=== PATIENT | female | born 1990 | race Caucasian/White ===

== ENCOUNTER 2025-06-15 10:22 | Emergency (ER) | payer OTHER, SELFPAY ==
[2025-06-15 10:41] VITALS: BP 151/75; PULSE 87; RESP 18; TEMP 36.5; O2SAT 97; BMI 31.9
--- NOTE | 2025-06-15 10:43 | ED_ITS ---
HPI - Medical Clearance General Chief complaint: Medical Clearance Stated complaint: Medical clearance for program Time Seen by Provider: 06/15/25 10:43 Source: patient Mode of arrival: ambulatory Limitations: no limitations History of Present Illness ED Provider: Willis Giron [facility] Narrative: 34 yold female with pmh of alcohol abuse presents to the ED for medical clearnance for detox. Patient denies any physical or psych complaints. Related Information Allergies Allergy/AdvReac Type Severity Reaction Status Date / Time Sulfa (Sulfonamide Allergy Flushing Verified 06/15/25 10:43 Antibiotics) Review of Systems 2 Review of Systems: medical clearnace Yes all other systems are reviewed and are negative PMFSH Social History Social History Advance Directives: No Advance Directives Information Provided: No Physical Exam 2 Vital Signs: Vital Signs: Last Vital Signs Temp 97.7 F 06/15/25 12:50 Pulse 87 06/15/25 12:50 Resp 18 06/15/25 12:50 BP 151/75 H 06/15/25 12:50 Pulse Ox 97 06/15/25 12:50 O2 Del Method Room Air 06/15/25 12:50 BMI result Body Mass Index 31.9 Const: General: cooperative, healthy appearing, comfortable, no acute distress, well developed, alert, awake and Physically active O rientation/consciousness: patient oriented x3 HEENT: Head: Yes normal to inspection, Yes No palpable skull fracture present, Yes normocephalic, Yes atraumatic and No abrasion Eyes: General: appearance normal, both eyes and all related structures Neck: Neck: Yes normal visual inspection, Yes full ROM, Yes no lymphadenopathy, Yes no meningeal signs, Yes trachea midline, Yes supple, No anterior neck swelling and No tender Chest: Chest palpation & inspection: normal inspection of the chest and normal palpation of entire chest wall Resp: Effort & Inspection: normal respiratory effort and able to speak in complete sentences Cardio: Jugular venous distension: no JVD Heart sounds: S1 normal heart sound present and S2 normal heart sound present GI: Inspection: Yes normal to inspection Palpation (GI): Soft to palpation, not firm, nontender, no guarding and not rigid : General: Yes no CVA tenderness Back/Spine/Pelvis: Back: no CVA tenderness and No back tenderness Skin: General skin exam: no rashes or lesions noted, elasticity normal and turgor normal Neuro: General: patient oriented x3, gait normal, tone normal, moves all extremities, Normal light touch and pain sensation, no meningeal signs, no focal motor deficits and CN's II-XI intact bilaterally Extrem: General: Yes normal to inspection, Yes full ROM and Yes capillary refill normal Psych: Appearance: grossly normal, well kempt and not disheveled Course Course Course Narrative: RME: 34 yold female with pmh of substacne abuse presents to the ED for medical clearance to go to detox program. Program required alcohol and drug screen. Patient states no physical complaints. labs ordered Medical Decision Making Medical Decision Making MDM Narrative: 34-year-old female presents to ED for medical clearance. Patient is getting into a detox program. Patient states no physical complaints. Patient denies any suicidal/homicidal ideation. Labs are normal. Patient explained worrisome signs and informed return to the ED immediately. Not suspecting any life- threatening etiology. Patient explained worrisome signs and informed to return to the ED. Differential Diagnosis Differential Diagnoses: The differential diagnosis associated with the presentation includes (Detox) Admission/Observation Consideration of admission/observation: Escalation of care including admission/observation considered Lab Data [facility] Lab Attestation statement: I reviewed the patient's lab results. 06/15/25 11:54 06/15/25 11:54 Labs: Lab Results 06/15/25 Range/Units 11:54 WBC 8.1 (4.8-10.8) X10*3/uL RBC 4.57 (4.20-5.50) X10*6/uL Hgb 12.8 (12.0-16.0) g/dl Hct 37.6 (37.0-47.0) % MCV 82.3 (80.0-98.0) fL MCH 28.0 (27.0-33.0) pg MCHC 34.0 (31.0-35.0) g/dl RDW 13.7 (11.0-16.0) % Plt Count 304 (160-400) X10*3/uL MPV 8.3 L (9.4-12.3) fL Immature Gran % (Auto) 0.4 (0.0-0.4) % Neut % (Auto) 54.5 (45-73) % Lymph % (Auto) 35.7 (20-40) % [place] % (Auto) 6.5 (2-11) % Eos % (Auto) 2.7 (0-4) % Baso % (Auto) 0.2 (0-2) % Lymph # (Auto) 2.9 (1.2-4.9) X10*3/uL [place] # (Auto) 0.5 (0.1-1.2) X10*3/uL Eos # (Auto) 0.2 (0.0-0.4) X10*3/uL Baso # (Auto) 0.0 (0.0-0.2) X10*3/uL Abs Immat Gran (auto) 0.03 (0.00-0.03) X10*3/uL Absolute Neuts (auto) 4.4 (2.0-8.3) x10*3/uL Absolute Nucleated RBC 0.000 (0.0-0.012) X10*3/uL Nucleated RBC % (auto) 0.0 (0.0-0.2) /100WBC Sodium 139 (135-145) mmol/L Potassium 4.0 (3.3-5.1) mmol/L Chloride 107 (96-108) mmol/L Carbon Dioxide 24 (22-29) mmol/L Anion Gap 12 (12-20) BUN 8 L (9-16) mg/dL Creatinine 0.84 (0.5-1.4) mg/dL Estim Creat Clear Calc 79.7 Estimated GFR > 60 Random Glucose 101 (60-115) mg/dL Calcium 9.5 (8.4-10.2) mg/dL Total Bilirubin 0.4 (0.0-1.0) mg/dL AST 29 (5-31) U/L ALT 27 (0-31) U/L Alkaline Phosphatase 89 (39-117) U/L Total Protein 7.6 (6.5-8.0) g/dL Albumin 4.6 (3.5-5.0) g/dL Urine Color Yellow Urine Appearance Clear Urine pH 6.0 (5.0-9.0) Ur Specific [place] 1.010 (1.005-1.025) Urine Protein Negative (Neg-Trace) mg/dL Urine Glucose (UA) Negative (Negative) mg/dL Urine Ketones Negative (Negative) mg/dL Urine Blood Negative (Negative) Urine Nitrite Negative (Negative) Ur Leukocyte Esterase Trace H (Negative) Urine RBC 0-2 (0-2) /HPF Urine WBC 0-5 (0-5) /HPF Ur Squamous Epith Cells 6-10 (0-2) /HPF Urine Bacteria Trace (None Seen) Hyaline Casts 0-2 (0-2) /LPF Urine Test NEGATIVE (NEGATIVE) Urine Opiates Screen Not Detected (Not Detect) Ur Buprenorphine Scrn Not Detected (Not Detect) ng/mL Ur Oxycodone Screen Not Detected (Not Detect) ng/mL Urine Methadone Screen Not Detected (Not Detect) ng/mL Urine Fentanyl Screen Not Detected (Not Detect) Ur Barbiturates Screen Not Detected (Not Detect) Ur Phencyclidine Scrn Not Detected (Not Detect) Ur Amphetamines Screen Not Detected (Not Detect) U Benzodiazepines Scrn Not Detected (Not Detect) Urine Cocaine Screen Not Detected (Not Detect) U Marijuana (THC) Screen Not Detected (Not Detect) Ethyl Alcohol < 10 mg/dL Independent Historian Clinical information obtained from an independent historian. History obtained from or confirmed by: Other (patient) Prescription Management I considered prescription management with: Other Discharge Plan Discharge Clinical Impression: Normal exam Patient Disposition: Home, Self-Care Instructions: Medical Clearance for Substance Use Disorder Treatment (ED) Additional Instructions: Recommend follow-up with primary care provider. Return to the ED immediately for any physical or psychiatric complaints. UN: 06/15/25 1237 PAGE 1 [facility] [address] [place] [id number] [place] Teacher: Cedric Parker M.D. Specimen Inquiry Name: Sharonda Montiel Age/Sex: 34/F : 1990 Unit#: [id number] Attend Dr: Shannon Wan DO Re06/15/25 Status: REG ER Location: [place] [facility] isch: SPEC : [id number] PAT: 06/15/25 STATUS: COMP REQ : [id number] RECD: 06/15/[address] [facility] [address]: Willis Giron COMP: 06/15/25 ENTERED: 06/15/[address] [facility] [address]: Physician,Unknown ORDERED: Ur Drug Scrn Test Result Flag Reference Opiates, Ur Not Detected Not Detect Opiate cut-off is 300 ng/mL. Positive results are unconfirmed and should not be used for non-medical purposes. Barbiturate, Ur Not Detected Not Detect Barbiturate cut-off is 200 ng/mL. Positive results are unconfirmed and should not be used for non-medical purposes. PCP, Ur Not Detected Not Detect Phencyclidine cut-off is 25 ng/mL. Positive results are unconfirmed and should not be used for non-medical purposes. Amphetamine,Ur Not Detected Not Detect Amphetamine cut-off is 1000 ng/mL. Positive results are unconfirmed and should not be used for non-medical purposes. Benzodiazep,Ur Not Detected Not Detect Benzodiazepine cut-off is 200 ng/mL. Positive results are unconfirmed and should not be used for non-medical purposes. Cocaine, Ur Not Detected Not Detect Cocaine cut-off is 300 ng/mL. Positive results are unconfirmed and should not be used for non-medical purposes. Cannabinoid, Ur Not Detected Not Detect Cannabinoid cut-off is 50 ng/mL. Positive results are unconfirmed and should not be used for non-medical purposes. Ur Meth Scrn Not Detected Not Detect ng/mL Methadone cut-off is 300 ng/mL. Positive results are unconfirmed and should not be used for non-medical purposes. Fentanyl, ur Not Detected Not Detect Fentanyl cut-off is 1 ng/mL. Positive results are unconfirmed and should not be used for non-medical purposes. Oxycodone Urine Not Detected Not Detect ng/mL Oxycodone cut-off is 100 ng/mL. Positive results are unconfirmed and should not be used for non-medical purposes. Buprenorph Scr Not Detected Not Detect ng/mL Buprenorphine cut-off is 5 ng/mL. Positive results are unconfirmed and should not be used for non-medical purposes. END OF REPORT RUN: 06/15/25 1248 PAGE 1 [facility] [address] [place] [phone] [place] Teacher: Cedric Parker M.D. Specimen Inquiry Name: Sharonda Montiel Age/Sex: 34/F : 1990 Unit#: [id number] Attend Dr: Shannon Wan DO Re06/15/25 Status: REG ER Location: [facility] isch: SPEC : [id number] PAT: 06/15/25 STATUS: COMP REQ : [id number] RECD: 06/15/[address]: Willis Giron COMP: 06/15/25122 ENTERED: 06/15/25-[address]: Physician,Unknown ORDERED: CMP, Ethanol Test Result Flag Reference Sodium 139 135-145 mmol/L Potassium 4.0 3.3-5.1 mmol/L CL 107 96-108 mmol/L CO2 24 22-29 mmol/L Gap 12 12-20 BUN 8 L 9-16 mg/dL Creat 0.84 0.5-1.4 mg/dL Estimated CrCl 79.7 Provided height and weight: 149.86 cm, 71.6 kg. eGFR (calculated from the MDRD study equation) and eCrCl (calculated from the Cockcroft-Gault equation) are based on different parameters and may not yield comparable results. If eCrCl result is absurd, please check patient's height/weight. eGFR > 60 Chronic Kidney Disease: Estimated GFR < 60 mL/min/1.73m2 Severe Kidney Disease: Estimated GFR < 15 mL/min/1.73m2 Glucose, Random 101 60-115 mg/dL CA 9.5 8.4-10.2 mg/dL Total Bili 0.4 0.0-1.0 mg/dL AST (GOT) 29 5-31 U/L ALT (GPT) 27 0-31 U/L Protein, Total 7.6 6.5-8.0 g/dL Alb 4.6 3.5-5.0 g/dL Alk Phos 89 39-117 U/L Ethanol < 10 mg/dL Serum/plasma ethanol results are to be used for medical/treatment purposes only. END OF REPORT Interventions: ED Discharge Assessment Last Done: 06/15/25 12:50 Discharge Date/Time: 06/15/25 12:52 Print Language: Sami
[2025-06-15 12:04] LABS: MANUAL DIFF FLAG NO
[2025-06-15 12:06] LABS: Hematocrit 37.6 % (37.0-47.0); Hemoglobin 12.8 g/dl (12.0-16.0); Imm Gran Abs Auto 0.03 X10*3/uL (0.00-0.03); Imm Gran Pct Auto 0.4 % (0.0-0.4); Lymphocytes Absolute Auto 2.9 X10*3/uL (1.2-4.9); Mean Corpuscular HGB Conc 34.0 g/dl (31.0-35.0); Mean Corpuscular Hemoglobin 28.0 pg (27.0-33.0); Mean Corpuscular Volume 82.3 fL (80.0-98.0); NRBC Abs Auto 0.000 X10*3/uL (0.0-0.012); NRBC Pct Auto 0.0 /100WBC (0.0-0.2); Platelet Count 304 X10*3/uL (160-400); Red Blood Count 4.57 X10*6/uL (4.20-5.50); White Blood Count 8.1 X10*3/uL (4.8-10.8)
[2025-06-15 12:08] LABS: Appearance Urine Clear; Glucose Urine UA Negative (Negative); PH 6.0 (5.0-9.0); Specific Gravity - Urine 1.010 (1.005-1.025); UMIC TRIGGER UACC YES
[2025-06-15 12:10] LABS: UPreg QC Valid YES
[2025-06-15 12:19] LABS: Cannabinoid Screen Urine Not Detected (Not Detect)
[2025-06-15 12:21] LABS: Alanine Aminotransferase 27 U/L (0-31); Albumin Level 4.6 g/dL (3.5-5.0); Alkaline Phosphatase 89 U/L (39-117); Anion Gap 12 (12-20); Aspartate Amino Transferase 29 U/L (5-31); Blood Urea Nitrogen 8 mg/dL (9-16); Calcium 9.5 mg/dL (8.4-10.2); Carbon Dioxide 24 mmol/L (22-29); Chloride 107 mmol/L (96-108); Creatinine Clr Calc Pharmacy 79.7; Estimated Glomerular Filt Rate > 60; Potassium 4.0 mmol/L (3.3-5.1); Sodium 139 mmol/L (135-145); Total Protein 7.6 g/dL (6.5-8.0)
[2025-06-15 12:50] VITALS: BP 151/75; PULSE 87; RESP 18; TEMP 36.5; O2SAT 97
--- OUTSIDE RECORDS SUMMARY | 2025-06-15 14:42 | XMS_ITS | Clinical Summary ---
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 inverted nipple or mass. Abdominal: General: Abdomen is flat. Palpations: Abdomen is soft. Genitourinary: General: Normal vulva. Pubic Area: No rash. Labia: Right: No rash or tenderness. Left: No rash or tenderness. Urethra: No urethral pain or urethral lesion. Vagina: Normal. No signs of injury. No vaginal discharge, erythema or tenderness. Cervix: No cervical motion tenderness or discharge. Uterus: Not fixed and not tender. Adnexa: Right: No mass or tenderness. Left: No mass or tenderness. Musculoskeletal: Cervical back: Normal range of motion. Lymphadenopathy: Upper Body: Right upper body: No supraclavicular or axillary adenopathy. Left upper body: No supraclavicular or axillary adenopathy. Neurological: Mental Status: She is alert. Vitals: 11/04/24 1339 BP: (!) 133/94 Pulse: 92 Resp: 14 Vitals BP: (!) 133/94 Weight: 76.7 kg (169 lb) [place] Depression Scale: In the Past 7 Days I have been able to laugh and see the funny side of things.: Not quite so much now I have looked forward with enjoyment to things.: As much as I ever did I have blamed myself unnecessarily when things went wrong.: Yes, some of the time I have been anxious or worried for no good reason.: Yes, sometimes I have felt scared or panicky for no good reason.: Yes, quite a lot Things have been getting on top of me.: Yes, sometimes I haven't been coping as well as usual I have been so unhappy that I have had difficulty sleeping.: Yes, sometimes I have felt sad or miserable.: Not very often I have been so unhappy that I have been crying.: Only occasionally The thought of harming myself has occurred to me.: Never [place] Depression Scale Total: 14 PN Check List: Pap is indicated at today's visit Std screening was collected at today's visit Panorama screening neg Depression screen positive, plan for positive awaiting new therapist on INFIMET working well level II high risk Anatomy ultrasound to be scheduled Assessment/Plan Supervision of high risk in first trimester (Primary) Encounter for screening for maternal depression - Health and behavioral assessment; Future Venereal disease screening - Chlamydia trachomatis and Neisseria gonorrhoeae molecular study Screening for malignant neoplasm of cervix - Pap smear Positive depression screening Elevated blood pressure affecting in first trimester, antepartum Essential hypertension Other orders - promethazine (PHENERGAN) 12.5 mg suppository; Insert 1 suppository (12.5 mg total) into the rectum every 8 (eight) hours. Dispense: 60 suppository; Refill: 1 F/u routinely Progress Notes - Clinical [place] [facility] - 10/22/2024 - [place]:12w0d 10/22/2024 - 12w0d - Karis Chavez RN Li Pichardo is a 34 y.o. old female at 12w0d. This is [place]. The patient feels happy about the . The FOB is supportive. Patient's last menstrual period was Patient's last menstrual period was 07/30/2024 (approximate). (exact date)., which would make her currently 12w0d with an Estimated Date of Delivery: 05/06/25. She is uncertain of her date. An ultrasound has already been performed on 09/23/24, size is = to dates Patient has significant history of: No previous history of OB Past Medical History: Have you had or do you currently have: Diabetes? No Hypertension? Yes Heart disease, Mitral valve Prolapse, or Rheumatic fever? No An Autoimmune disease such as Lupus or Rheumatoid Arthritis? No Epilepsy, Seizures, or Spells? Yes Migraine Headaches? No Stroke or loss of function or sensation? No Additional Questions: Have you ever been treated for anxiety and/or depression? Yes Are you having problems with crying spells or loss of self-esteem? No Have you ever required psychiatric care? Yes Have you ever had hepatitis, liver disease or jaundice? No Have you ever been treated for blood clots in your veins, deep venous thrombosis, inflammation in the veins, thrombosis, phlebitis, pulmonary embolism or varicosities? No Have you had excessive bleeding after surgery or dental work? No Do you bleed more than other women after a cut or scratch? No Do you have a history of anemia? Yes Have you ever had Thyroid problems or taken Thyroid medications? No Do you have any other Endocrine Problems (ie. PCOS)? No Have you ever been in a major accident or suffered serious trauma? Yes Within the last year, has anyone hit, slapped, kicked or otherwise hurt you? No In the last year, has anyone forced you to have sex when you didn't want to? No Do you feel safe at home? Yes Have you ever received a blood transfusion? No Would you refuse a blood transfusion if a doctor judged to be medically necessary? No Would you rather than receive a blood transfusion? No If you answered yes to the above questions, is this for hoahaoism reasons? No Do you know what your blood type is or if you are Rh Negative? No Have you ever had abnormal antibodies in your blood? Have you ever had asthma? No Have you every had Tuberculosis? No Have you ever had any breast problems? No Have you ever breast fed? No Have you ever had any gynecological surgical procedures such as cervical conization, LEEP procedure, Laser treatment, cryosurgery of the cervix or dilation and curettage, etc? No Have you had any other surgical procedures? Yes Have you ever been hospitalized overnight for a non-surgical reason excluding normal delivery? No Have you ever had anesthesia complications? No Have you ever had an abnormal pap smear? No Do you have a history of abnormalties of the uterus? No Did your mother take CRISTELA or any other hormones when she was with you? No Did it take more than one year to become ? No Have you ever been evaluated or treated for infertility? No Is there a history of medical problems in your family which you feel might adversely affect your health or ? No Do you have any other problems we have not asked you about which you feel may be important for us to know for this ? No Do you currently have any of the following symptoms since your last menstrual period: Abdominal pain, blood in the stool or urine, chest pain, shortness of breath, coughing or vomiting up blood, your heart racing or skipping beats, nausea and/or vomiting, pain on urination, or vaginal discharge or vaginal bleeding? No OB Infection History: Do you object to being tested for Hepatitis B? No Do you object to being tested for HIV? No Do you feel that you are at high risk for coming contact with the AIDS virus? No Have you ever been treated for tuberculosis? No Have you ever received the BCG vaccine? No Have you ever had a positive skin test for Tuberculosis? No Do you live with someone who has Tuberculosis? No Have you ever been exposed to Tuberculosis? No Do you have Genital Herpes? No Does your partner have Genital Herpes? No Have you had a rash or viral illness since your last period? No Have you ever had Gonorrhea, Chlamydia, Syphilis, Venereal Warts, Trichomoniasis, Pelvic Inflammatory Disease (PID) or any other sexually transmitted disease? No Do you know if you are a Group B Streptococcus Carrier? No Did you have the Chicken Pox/Varicella? No Were you vaccinated against Chicken Pox/Varicella? No Have you had any other infectious diseases? No Li Pichardo has been instructed on the following: random urine drug screening policy and an initial urine drug screen has been ordered. Li Pichardo has also been informed of the data scientist provider recommendation for first trimester nuchal lucency testing to be performed during her . Li Pichardo has also been made aware of the time sensitive nature for this testing to be completed. . The patient now has a gestational age of 12w0d. The patient has agreed that she does want nuchal lucency testing. Ethnicity Based Genetic Testing has been reviewed and the [facility] information sheet has been provided to the patient in their After Visit Summary. The patient was also advised that genetic testing may not be covered by all insurances. The patients states that they understand this information. The patient states that she has not had the genetic screening for Horizon 14 done in the past during a previous . The patient has agreed that she does want genetic testing for Horizon 14 & Panorama. The following Labs have been ordered: Obstetric Panel, HgA1c, Early Glucose Screen, HIV with verbal Consent, Hepatitis C, Varicella titer, Urine Culture, Pre- Eclampsia Panel, UDS, Panorama with gender, and Horizon 14 panel She is aware that her insurance may or may not cover Panorama and/or Horizon 14 test and discussed dennis only olivares for test(s) - info given today in her after visit summary . She would like to proceed with testing. Electronically signed by: Karis Fields RN 10/22/24 1:18 PM EST Last Filed Vital Signs Vital Sign Reading Time Taken Comments Blood Pressure 124/88 04/23/2025 10:04 AM EDT Pulse 91 04/20/2025 9:12 AM EDT Temperature 36.7 C (98 F) 04/20/2025 9:12 AM EDT Respiratory Rate 16 04/20/2025 9:12 AM EDT Oxygen Saturation 98% 04/20/2025 9:12 AM EDT Inhaled Oxygen Concentration - - Weight 73.9 kg (163 lb) 04/23/2025 10:04 AM EDT Height 149.9 cm (4' 11 ) 04/15/2025 5:52 PM EDT Body Mass Index 32.92 04/15/2025 5:52 PM EDT Plan of Treatment Upcoming Encounters Date Type Department Care Team (Late st Contact Info) Description 10/22/2025 11:00 AM EST Office Visit Adult Medicine - [place] [address] [place] [address] Dacry Flynn MD [address] [place] [address] Health Maintenance Due Date Last Done Comments Hepatitis A Vaccines (1 of 2 - Risk 2-dose series) 2007 Hepatitis B Vaccines (1 of 3 - 19+ 3-dose series) 2007 HPV Vaccines (1 - 3-dose SCDM series) 2015 COVID-19 Vaccine ( season) 2025 02/16/2021, 01/12/2021 Influenza Vaccine (#1) 2025 Social Influencers of Health Screening 04/15/2026 04/15/2025 Hypertension/CHF/CAD Annual BMP Blood Test 04/17/2026 04/17/2025, 04/15/2025, 04/04/2025, Additional history exists Cholesterol Screening (Lipid Panel) 06/25/2029 06/25/2024, 09/25/2023 Cervical Cancer Screening: HPV 11/04/2029 11/04/2024, 03/03/2019 DTaP,Tdap,and Td Vaccines (3 - Td or Tdap) 04/03/2035 04/03/2025, 06/25/2024 RSV Immunization Adult Patients (1 - 1-dose 75+ series) 2063 Pneumococcal Vaccine: Pediatrics (0 to 5 Years) and At-Risk Patients (6 to 49 Years) Aged Out 09/29/2019 No longer eligible based on patient's age to complete this topic HIV Screening Completed 10/22/2024, 06/10, 06/25/2024 Hepatitis C Screening Completed 10/22/2024, 024 Depression Screening Completed 12/02/2024 HIB Vaccines Aged Out No longer eligi ble based on patient's age to complete this topic IPV Vaccines Aged Out No longer eligi ble based on patient's age to complete this topic MMR Vaccines Aged Out No longer eligi ble based on patient's age to complete this topic Meningococcal ACWY Vaccine Aged Out N o longer eligible based on patient's age to complete this topic Meningococcal B Vaccine Aged Out No l onger eligible based on patient's age to complete this topic RSV Immunization Patients Under 20 months Aged Out No longer eligible based on patient's age to complete this topic Varicella Vaccines Aged Out No longer eligible based on patient's age to complete this topic Procedures Procedure Name Priority Date/Time Associated Diagnosis Comments EXTERNAL ULTRASOUND REPORT 04/21/2025 SST - GOLD Routine 04/18/2025 5:59 AM EDT EXTRA TUBES Routine 04/18/2025 5:59 AM EDT COMPLETE BLOOD COUNT Routine 04/18/2025 5:59 AM EDT TISSUE EXAM Routine 04/17/2025 8:53 AM EDT CBC WITH AUTO DIFFERENTIAL Routine 04/17/2025 8:15 AM EDT COMPREHENSIVE METABOLIC PANEL Routine 04/17/2025 8:15 AM EDT CBC AND DIFFERENTIAL Routine 04/17/2025 8:15 AM EDT ANESTHESIA SPINAL BLOCK Routine 04/17/2025 4:55 AM EDT BASIC METABOLIC PANEL STAT Add-on 04/15/2025 6:24 PM EDT HEPATIC FUNCTION PANEL Add-On 6:24 PM EDT TREPONEMA PALLIDUM ANTIBODY WITH REFLEX TO RPR AND PARTICLE AGGLUTINATION Routine 04/15/2025 6:24 PM EDT COMPLETE BLOOD COUNT Routine 04/15/2025 6:24 PM EDT TYPE AND SCREEN Routine 04/15/2025 6:24 PM EDT PROTEIN AND CREATININE WITH RATIO, URINE Routine 04/15/2025 6:21 PM EDT DRUG ABUSE SCREEN 8A PANEL, URINE Routine 04/15/2025 6:21 PM EDT US BIOPHYSICAL PROFILE WO NON STRESS TEST Routine 04/08/2025 4:17 PM EDT Maternal care for other known or suspected poor growth, third trimester, not applicable or unspecified Chronic hypertension complicating or reason for care during , third trimester US UMBILICAL ARTERY DOPPLER Routine 04/08/2025 4:17 PM EDT Maternal care for other known or suspected poor growth, third trimester, not applicable or unspecified Chronic hypertension complicating or reason for care during , third trimester US OB FOLLOWUP PER FETUS Routine 04/08/2025 4:17 PM EDT Maternal care for other known or suspected poor growth, third trimester, not applicable or unspecified Chronic hypertension complicating or reason for care during , third trimester REGAN URINE CULTURE TUBE STAT 04/04/2025 4:12 PM EDT URINALYSIS WITH REFLEX MICROSCOPIC AND CULTURE STAT 04/04/2025 4:12 PM EDT STREP B PCR Routine 04/04/2025 4:12 PM EDT URINALYSIS WITH REFLEX MICROSCOPIC AND CULTURE STAT 04/04/2025 4:12 PM EDT PINK - K EDTA Routine 04/04/2025 3:09 PM EDT EXTRA TUBES Routine 04/04/2025 3:09 PM EDT URIC ACID STAT 04/04/2025 3:09 PM EDT COMPREHENSIVE METABOLIC PANEL STAT 04/04/2025 3:09 PM EDT COMPLETE BLOOD COUNT STAT 04/04/2025 3:09 PM EDT DRUG ABUSE SCREEN 8A PANEL, URINE Add-On 04/04/2025 3:07 PM EDT PROTEIN AND CREATININE WITH RATIO, URINE STAT 04/04/2025 3:07 PM EDT BUN Routine 04/03/2025 11:40 AM EDT Chronic hypertension affecting Obesity complicating childbirth Encounter for supervision of normal first in third trimester Multigravida of advanced maternal age in first trimester CREATININE, SERUM Routine 04/03/2025 11:40 AM EDT Chronic hypertension affecting Obesity complicating childbirth Encounter for supervision of normal first in third trimester Multigravida of advanced maternal age in first trimester ALANINE AMINOTRANSFERASE Routine 04/03/2025 11:40 AM EDT Chronic hypertension affecting Obesity complicating childbirth Encounter for supervision of normal first in third trimester Multigravida of advanced maternal age in first trimester ASPARTATE AMINOTRANSFERASE Routine 04/03/2025 11:40 AM EDT Chronic hypertension affecting Obesity complicating childbirth Encounter for supervision of normal first in third trimester Multigravida of advanced maternal age in first trimester COMPLETE BLOOD COUNT Routine 04/03/2025 11:40 AM EDT Chronic hypertension affecting Obesity complicating childbirth Encounter for supervision of normal first in third trimester Multigravida of advanced maternal age in first trimester PROTEIN AND CREATININE WITH RATIO, URINE Routine 04/03/2025 11:40 AM EDT Chronic hypertension affecting Obesity complicating childbirth Encounter for supervision of normal first in third trimester Multigravida of advanced maternal age in first trimester US OB LIMITED 1+ FETUSES STAT 04/03/2025 11:28 AM EDT IUGR (intrauterine growth restriction) affecting care of mother, third trimester, fetus 1 NST (non-stress test) nonreactive Chronic hypertension affecting Encounter for supervision of normal first in third trimester Multigravida of advanced maternal age in first trimester US UMBILICAL ARTERY DOPPLER STAT 04/03/2025 11:28 AM EDT IUGR (intrauterine growth restriction) affecting care of mother, third trimester, fetus 1 NST (non-stress test) nonreactive Chronic hypertension affecting Encounter for supervision of normal first in third trimester Multigravida of advanced maternal age in first trimester US BIOPHYSICAL PROFILE WO NON STRESS TEST STAT 04/03/2025 11:28 AM EDT NST (non-stress test) nonreactive Chronic hypertension affecting Obesity complicating childbirth Encounter for supervision of normal first in third trimester Multigravida of advanced maternal age in first trimester US BIOPHYSICAL PROFILE WO NON STRESS TEST STAT 03/27/2025 3:32 PM EDT NST (non-stress test) nonreactive Chronic hypertension affecting Multigravida of advanced maternal age in first trimester Other obesity due to excess calories affecting in third trimester Abnormal finding on screening of mother Poor growth affecting management of mother in [place] in third trimester US UMBILICAL ARTERY DOPPLER STAT 03/27/2025 3:32 PM EDT NST (non-stress test) nonreactive Chronic hypertension affecting Multigravida of advanced maternal age in first trimester Other obesity due to excess calories affecting in third trimester Abnormal finding on screening of mother Encounter for maternal care for poor growth in [place] in third trimester GTT GESTATIONAL 3 HOUR Routine 11:51 AM EDT Elevated glucose tolerance test GTT GESTATIONAL 2 HOUR Routine 5 10:51 AM EDT Elevated glucose tolerance test GTT GESTATIONAL 1 HOUR Routine 5 9:51 AM EDT Elevated glucose tolerance test GTT GESTATIONAL FASTING Routine 03/25/2025 8:50 AM EDT Elevated glucose tolerance test GLUCOSE TOLERANCE TEST, 3H GESTATION Routine 03/25/2025 8:50 AM EDT Elevated glucose tolerance test US UMBILICAL ARTERY DOPPLER Routine 03/24/2025 2:52 PM EDT Obesity Drug use affecting , antepartum, second trimester Obesity affecting in second trimester AMA (advanced maternal age) multigravida 35+, third trimester Essential hypertension affecting in third trimester US BIOPHYSICAL PROFILE WO NON STRESS TEST Routine 03/24/2025 2:52 PM EDT Obesity Hypertension affecting in second trimester Drug use affecting , antepartum, second trimester Advanced maternal age in multigravida, second trimester US OB FOLLOWUP PER FETUS Routine 03/24/2025 2:52 PM EDT Obesity Hypertension affecting in second trimester Drug use affecting , antepartum, second trimester Obesity affecting in second trimester Advanced maternal age in multigravida, second trimester HPV WITH REFLEX GENOTYPE Routine 11/04/2024 2:07 PM EST Screening for malignant neoplasm of cervix HEPATITIS C ANTIBODY Routine 10/22/2024 2:16 PM EST Multigravida of advanced maternal age in first trimester Obesity complicating childbirth Encounter for supervision of normal first in first trimester HIV 1, 2 ANTIBODY, P24 ANTIGEN WITH REFLEX TO DIFFERENTIATION Routine 10/22/2024 2:16 PM EST Multigravida of advanced maternal age in first trimester Obesity complicating childbirth Encounter for supervision of normal first in first trimester LIPID PANEL Routine 09/25/2023 [place] DELIVERY ONLY hyertension Case Notes Gestation hypertension from Last 3 Months or Most Recently Relevant to Health Maintenance Results * External Ultrasound Report (04/21/2025) Anatomical Region Laterality Modality Ultrasound us Provider Onbase IMG US PROCEDURES Final Resul t * SST tube (04/18/2025 5:59 AM EDT) Extra Tube Hold for add-ons. 04/18/2025 8:01 AM EDT [facility] Comment:Auto resulted. Blood Venous blood specimen / Unknown Venipuncture / Unknown 04/18/2025 5:59 AM EDT 04/18/2025 6:25 AM EDT us Kailash Wray MD LAB BLOOD ORDERABLES Final Re sult [facility] [address] [place] [address], [place] [phone] * (ABNORMAL) Complete blood count (04/18/2025 5:59 AM EDT) Only the most recent of4 resultswithin the time period is included. WBC 11.7(H) 4.8 - 10.8 K/[facility] HEMETOLOGY METHOD 04/18/2025 7:02 AM [facility] RBC 3.80 3.80 - 4.80 M/mcL LAB HEMETOLOGY METHOD 04/18/2025 7:02 AM [facility] Hemoglobin 10.2(L) 11.5 - 16.0 g/dL LAB HEMETOLOGY METHOD 04/18/2025 7:02 AM [facility] Hematocrit 32.3(L) 35.0 - 47.0 % LAB HEMETOLOGY METHOD 04/18/2025 7:02 AM [facility] MCV 84.3 79.0 - 98.0 FL LAB HEMETOLOGY METHOD 04/18/2025 7:02 AM [facility] MCH 26.6(L) 27.0 - 32.0 pcg LAB HEMETOLOGY METHOD 04/18/2025 7:02 AM [facility] MCHC 31.6(L) 32.0 - 37.0 g/dL LAB HEMETOLOGY METHOD 04/18/2025 7:02 AM [facility] RDW 15.5(H) 11.0 - 15.0 % LAB HEMETOLOGY METHOD 04/18/2025 7:02 AM [facility] Platelets 276 130 - 400 K/mcL LAB HEMETOLOGY METHOD 04/18/2025 7:02 AM [facility] MPV 9.6 7.0 - 11.0 FL LAB HEMETOLOGY METHOD 04/18/2025 7:02 AM [facility] NRBC 0.0 <1.0 % LAB HEMETOLOGY METHOD 04/18/2025 7:02 AM [facility] NRBC Absolute 0.00 <0.10 K/mcL LAB HEMETOLOGY METHOD 04/18/2025 7:02 AM EDT [facility] Blood Venous blood specimen / Unknown Venipuncture / Unknown 04/18/2025 5:59 AM EDT 04/18/2025 6:23 AM EDT us Allison Wise MD LAB BLOO D ORDERABLES Final Result [facility] [address] [place] [address], * Tissue exam (04/17/2025 8:53 AM EDT) Final Diagnosis 266 g third trimester placenta (less than third percentile for gestational age; small for gestational age) with: Pigment within the amnion and chorion No decidual arteriopathy identified 04/24/2025 1:08 PM EDT [facility] Gross Description A. Placenta, : Labeled placenta . Received in formalin is a 266 gram, 12.8 x 12.4 x 2.4 cm ovoid placenta, which is weighed after the removal of the membranes and the amputation of the umbilical cord. The umbilical cord inserts eccentrically, 3.1 cm internal from the nearest margin. The cord has three vessels, measures 15.4 cm in length and 1.0 cm in diameter. A left spiral is present with two varices. The cord has two spirals towards the distal cord. The membranes have an approximately 30% circummarginate insertion and 70% marginal insertion. The membrane site of rupture is 1.9 cm from the nearest margin. The membranes are intact, regan-blue to purple, semi-translucent, and glistening. The amnion is partially stripped. Minimal subchorionic fibrin is present. The vessels are unremarkable. The maternal surface is brown-red and predominantly intact (approximately 20% disruption). The parenchymal cut surfaces are purple and spongiform, without focal lesions. Complex Case Manager sections are submitted in four cassettes. 1-membrane roll from/near rupture site, distal cord, three pieces 2-proximal cord and central full-thickness section of placental disc, adjacent to umbilical cord insertion site, two pieces 3-4-central full-thickness cross-sections 04/24/2025 1:08 PM EDT [facility] Disclaimer Unless otherwise specified, all tissue is 10% NB formalin fixed and paraffin embedded. 04/24/2025 1:08 PM EDT [facility] Tissue Placental structure / Unknown Non-blood Collection / Unknown 04/17/2025 8:53 AM EDT 04/17/2025 2:40 PM EDT us Kailash Wray MD LAB PATHOLOGY ORDERABLES Tiera mojica Result [facility] [address] [place] [address], * (ABNORMAL) CBC auto differential (04/17/2025 8:15 AM EDT) WBC 17.2(H) 4.8 - 10.8 K/mcL LAB HEMETOLOGY METHOD 04/17/2025 8:30 AM [facility] RBC 4.20 3.80 - 4.80 M/[facility] HEMETOLOGY METHOD 04/17/2025 8:30 AM [facility] Hemoglobin 11.1(L) 11.5 - 16.0 g/dL LAB HEMETOLOGY METHOD 04/17/2025 8:30 AM [facility] Hematocrit 33.9(L) 35.0 - 47.0 % LAB HEMETOLOGY METHOD [facility]17[facility] MCV 81.5 79.0 - 98.0 FL LAB HEMETOLOGY METHOD 04/17/2025 8:30 AM [facility] MCH 26.7(L) 27.0 - 32.0 pcg LAB HEMETOLOGY METHOD 04/17/2025 8:30 AM [facility] MCHC 32.7 32.0 - 37.0 g/dL LAB HEMETOLOGY METHOD 04/17/2025 8:30 AM [facility] RDW 14.7 11.0 - 15.0 % LAB HEMETOLOGY METHOD 04/17/2025 8:30 AM [facility] Platelets 279 130 - 400 K/mcL LAB HEMETOLOGY METHOD 04/17/2025 8:30 AM [facility] MPV 9.4 7.0 - 11.0 FL LAB HEMETOLOGY METHOD 04/17/2025 8:30 AM [facility] NRBC 0.0 <1.0 % LAB HEMETOLOGY METHOD 04/17/2025 8:30 AM [facility] NRBC Absolute 0.00 <0.10 K/mcL LAB HEMETOLOGY METHOD 04/17/2025 8:30 AM [facility] Neutrophils Relative 84.5 % LAB HEMETOLOGY METHOD 04/17/2025 8:30 AM [facility] Lymphocytes Relative 11.3 % LAB HEMETOLOGY METHOD 04/17/2025 8:30 AM [facility] Monocytes Relative 3.5 % LAB HEMETOLOGY METHOD 04/17/2025 8:30 AM [facility] Eosinophils Relative 0.1 % LAB HEMETOLOGY METHOD 04/17/2025 8:30 AM [facility] Basophils Relative 0.1 % LAB HEMETOLOGY METHOD 04/17/2025 8:30 AM [facility] Immature Granulocytes Relative 0.5 % LAB HEMETOLOGY METHOD 04/17/2025 8:30 AM [facility] Neutrophils Absolute 14.53(H) 1.50 - 7.00 K/mcL LAB HEMETOLOGY METHOD 04/17/2025 8:30 AM [facility] Lymphocytes Absolute 1.95 1.00 - 5.00 K/mcL LAB HEMETOLOGY METHOD 04/17/2025 8:30 AM EDT [facility] Monocytes Absolute 0.60 0.20 - 1.00 K/[facility] LAB HEMETOLOGY METHOD 04/17/2025 8:30 AM EDT [facility] Eosinophils Absolute 0.02 0.00 - 0.50 K/[facility] LAB HEMETOLOGY METHOD 04/17/2025 8:30 AM EDT [facility] Basophils Absolute 0.02 0.00 - 0.20 K/[facility] LAB HEMETOLOGY METHOD 04/17/2025 8:30 AM EDT [facility] Immature Granulocytes Absolute 0.09(H) 0.00 - 0.03 K/[facility] LAB HEMETOLOGY METHOD 04/17/2025 8:30 AM EDT [facility] Blood Venous blood specimen / Unknown Venipuncture / Unknown 04/17/2025 8:15 AM EDT 04/17/2025 8:26 AM EDT us Allison Wise MD LAB BLOO D ORDERABLES Final Result [facility] [address] [place] [address], * (ABNORMAL) Comprehensive metabolic panel (04/17/2025 8:15 AM EDT) Only the most recent of2 resultswithin the time period is included. Sodium 132(L) 133 - 145 mmol/L LAB CHEMISTRY METHOD 04/17/2025 8:54 AM EDT [facility] Potassium 4.2 3.5 - 5.5 mmol/L LAB CHEMISTRY METHOD 04/17/2025 8:54 AM EDT [facility] Chloride 104 96 - 110 mmol/L LAB CHEMISTRY METHOD 04/17/2025 8:54 AM EDT [facility] CO2 22 21 - 32 mmol/L LAB CHEMISTRY METHOD 04/17/2025 8:54 AM [facility] Anion Gap 6 3 - 11 LAB CHEMISTRY METHOD 04/17/2025 8:54 AM [facility] Glucose 99 70 - 100 mg/dL LAB CHEMISTRY METHOD 04/17/2025 8:54 AM [facility] BUN 6 5 - 25 mg/dL LAB CHEMISTRY METHOD 04/17/2025 8:54 AM [facility] Creatinine 0.48(L) 0.50 - 1.10 mg/dL LAB CHEMISTRY METHOD 04/17/2025 8:54 AM [facility] eGFR 126 >=60 mL/min/1. 73m2 LAB CHEMISTRY METHOD 04/17/2025 8:54 AM [facility] Comment:Calculation based on the Chronic Kidney Disease Epidemiology Collaboration (CKD-EPI) equation refit without adjustment for race. BUN/Creatinine Ratio 12.5 LAB CHEMISTRY METHOD 04/17/2025 8:54 AM [facility] Calcium 8.3(L) 8.5 - 10.5 mg/dL LAB CHEMISTRY METHOD 04/17/2025 8:54 AM [facility] AST (SGOT) 20 10 - 42 unit/L LAB CHEMISTRY METHOD 04/17/2025 8:54 AM [facility] ALT (SGPT) 27 10 - 60 unit/L LAB CHEMISTRY METHOD 04/17/2025 8:54 AM [facility] Alkaline Phosphatase 140(H) 42 - 121 unit/L LAB CHEMISTRY METHOD 04/17/2025 8:54 AM [facility] Total Protein 5.7(L) 6.0 - 8.0 g/dL LAB CHEMISTRY METHOD 04/17/2025 8:54 AM [facility] Albumin 2.5(L) 3.2 - 5.0 g/dL LAB CHEMISTRY METHOD 04/17/2025 8:54 AM EDT [facility] Total Bilirubin 0.2 0.0 - 1.4 mg/dL LAB CHEMISTRY METHOD 04/17/2025 8:54 AM EDT [facility] Blood Venous blood specimen / Unknown Venipuncture / Unknown 04/17/2025 8:15 AM EDT 04/17/2025 8:26 AM EDT us Allison Wise MD LAB BLOO D ORDERABLES Final Result [facility] [address] [place] [address], * Spinal Block (04/17/2025 4:55 AM EDT) Narrative Gregory Silva MD - 04/17/2025 4:55 AM EDT Gregory Silva MD 04/17/2025 5:34 AM Spinal Block Patient location during procedure: OB Start time: 04/17/2025 4:55 AM End time: 04/17/2025 4:58 AM Reason for block: primary anesthetic and at surgeon's request Staffing Performed: anesthesiologist Performed by: Gregory Silva MD Authorized by: Gregory Silva MD Preanesthetic Checklist Completed: patient identified, IV checked, risks and benefits discussed, surgical consent, monitors and equipment checked, pre-op evaluation and timeout performed Spinal Block Patient position: sitting Prep: ChloraPrep and site prepped and draped Patient monitoring: continuous pulse ox Approach: midline Injection technique: single-shot Needle Needle type: Bayron Needle gauge: 25 G Needle length: 3.5 in Medications Administered bupivacaine 0.75%-dextrose 8.25% (SENSORCAINE) intrathecal injection - intrathecal 1.4 mL - 04/17/2025 4:55:00 AM fentaNYL (SUBLIMAZE) injection 50 mcg/mL - intravenous 10 mcg - 04/17/2025 4:55:00 AM morphine PF (DURAMORPH) injection 1 mg/mL - intrathecal 0.2 mg - 04/17/2025 4:55:00 AM Assessment Sensory level: T4 Additional Notes Positive CSF swirl. us Gregory Silva MD ANESTHESIA ORDERABLES Edited R esult - Final * Treponema pallidum antibody with reflex to RPR and particle agglutination (04/15/2025 6:24 PM EDT) Pathologist [facility] T. Pallidum Antibodies Negative Negative LAB CHEMISTRY METHOD 04/15/2025 7:20 PM EDT [facility] Blood Venous blood specimen / Unknown Venipuncture / Unknown 04/15/2025 6:24 PM EDT 04/15/2025 6:31 PM EDT us aKilash Wray MD LAB BLOOD ORDERABLES Final Re sult Performing Organization Address [facility]/ZIP Co de Phone Number [facility] [address] [place] [address], [place] [phone] * Type and screen (04/15/2025 6:24 PM EDT) [facility] ABO Group A 04/15/2025 7:29 PM EDT [facility] Rh Type Positive 04/15/2025 7:29 PM EDT [facility] Antibody Screen Negative 04/15/2025 7:29 PM EDT [facility] Blood Venous blood specimen / Unknown Venipuncture / Unknown 04/15/2025 6:24 PM EDT 04/15/2025 6:31 PM EDT us Kailash Wray MD LAB BLOOD BANK TEST ORDERABLE S Final Result Performing Organization Address [facility]/ZIP Co de Phone Number [facility] [address] [place] [address], [place] [phone] * (ABNORMAL) Hepatic function panel (04/15/2025 6:24 PM EDT) [facility] Total Protein 6.0 6.0 - 8.0 g/dL LAB CHEMISTRY METHOD 04/15/2025 8:22 PM EDT [facility] Albumin 2.7(L) 3.2 - 5.0 g/dL LAB CHEMISTRY METHOD 04/15/2025 8:22 PM EDT [facility] Total Bilirubin 0.2 0.0 - 1.4 mg/dL LAB CHEMISTRY METHOD 04/15/2025 8:22 PM T [facility] Bilirubin, Direct <0.1 0.0 - 0.3 mg/dL LAB CHEMISTRY METHOD 04/15/2025 8:22 PM [facility] Bilirubin, Indirect LAB CHEMISTRY METHOD 04/15/2025 8:22 PM [facility] Comment:Unable to calculate Indirect Bilirubin. ALT (SGPT) 26 10 - 60 unit/L LAB CHEMISTRY METHOD 04/15/2025 8:22 PM [facility] AST (SGOT) 18 10 - 42 unit/L LAB CHEMISTRY METHOD 04/15/2025 8:22 PM T [facility] Alkaline Phosphatase 146(H) 42 - 121 unit/L LAB CHEMISTRY METHOD 04/15/2025 8:22 PM [facility] Blood Venous blood specimen / Unknown Venipuncture / Unknown 04/15/2025 6:24 PM EDT 04/15/2025 6:31 PM EDT us Kailash Wray MD LAB BLOOD ORDERABLES Final Re sult [facility] [address] [place] [address], * (ABNORMAL) Basic metabolic panel (04/15/2025 6:24 PM EDT) Sodium 137 133 - 145 mmol/L LAB CHEMISTRY METHOD 04/15/2025 8:22 PM EDT [facility] Potassium 3.6 3.5 - 5.5 mmol/L LAB CHEMISTRY METHOD 04/15/2025 8:22 PM [facility] Chloride 110 96 - 110 mmol/L LAB CHEMISTRY METHOD 04/15/2025 8:22 PM [facility] CO2 20(L) 21 - 32 mmol/L LAB CHEMISTRY METHOD 04/15/2025 8:22 PM [facility] Anion Gap 7 3 - 11 LAB CHEMISTRY METHOD 04/15/2025 8:22 PM [facility] Glucose 115(H) 70 - 100 mg/dL LAB CHEMISTRY METHOD 04/15/2025 8:22 PM [facility] BUN 11 5 - 25 mg/dL LAB CHEMISTRY METHOD 04/15/2025 8:22 PM [facility] Creatinine 0.70 0.50 - 1.10 mg/dL LAB CHEMISTRY METHOD 04/15/2025 8:22 PM [facility] eGFR 115 >=60 mL/min/1. 73m2 LAB CHEMISTRY METHOD 04/15/2025 8:22 PM [facility] Comment:Calculation based on the Chronic Kidney Disease Epidemiology Collaboration (CKD-EPI) equation refit without adjustment for race. BUN/Creatinine Ratio 15.7 LAB CHEMISTRY METHOD 04/15/2025 8:22 PM [facility] Calcium 9.0 8.5 - 10.5 mg/dL LAB CHEMISTRY METHOD 04/15/2025 8:22 PM [facility] Blood Venous blood specimen / Unknown Venipuncture / Unknown 04/15/2025 6:24 PM EDT 04/15/2025 6:31 PM EDT us Kailash Wray MD LAB BLOOD ORDERABLES Final Re sult [facility] [address] [place] [address], [place] [phone] * Drug abuse screen 8a panel, urine (04/15/2025 6:21 PM EDT) Only the most recent of2 resultswithin the time period is included. Amphetamine Screen, Ur Negative Negative LAB [facility]:Certain OTC medicati ons containing ephedrine, phenylephrine, pseudoephedrine and phenylpropanolamine can cause false positive results. Barbiturate Screen, Ur Negative Negative LAB CHEMISTRY METHOD [facility]/15/2025 7[facility] Benzodiazepine Screen, Ur Negative Negative LAB CHEMISTRY METHOD 04/15/2025 7:14 PM [facility] Cocaine Screen, Ur Negative Negative LAB CHEMISTRY METHOD 04/15/2025 7:14 PM [facility] Opiate Screen, Ur Negative Negative LAB CHEMISTRY METHOD 04/15/2025 7:14 PM [facility] Cannabinoid (THC) Screen, Ur Negative Negative LAB CHEMISTRY METHOD 04/15/2025 7:14 PM [facility] Comment:Specimens from patie nts taking pantoprazole sodium (Protonix) have been shown to produce false positive results. Oxycodone Screen, Ur Negative Negative LAB CHEMISTRY METHOD 04/15/2025 7:14 PM [facility] Fentanyl, Ur Negative Negative LAB CHEMISTRY METHOD 04/15/2025 7:14 PM [facility] Urine Urine specimen obtained by clean catch procedure / Unknown Non-blood Collection / Unknown 04/15/2025 6:21 PM EDT 04/15/2025 6:33 PM EDT [facility] - 04/15/2025 7:14 PM EDT Assay cutoffs: Amphetamines 1000 ng/mL Barbiturates 200 ng/mL Benzodiazepines 200 ng/mL Cocaine 300 ng/mL Fentanyl 1 ng/mL Opiates 300 ng/mL Oxycodone 100 ng/mL THC 50 ng/mL Semi-quantitative assay for screening purposes only. Unconfirmed screening result should not be used for non-medical purposes. *ALTERNATE METHOD CONFIRMATION DONE UPON REQUEST ONLY* us Kailash Wray MD LAB URINE ORDERABLES Final Re sult Performing Organization Address [facility] Co de Phone Number [facility] [address] [place] [address], [place] [phone] * (ABNORMAL) Protein and creatinine ratio, urine (04/15/2025 6:21 PM EDT) Only the most recent of3 resultswithin the time period is included. Protein, Urine 28 mg/dL LAB CHEMISTRY METHOD 04/15/2025 7:14 PM EDT [facility] Prot/Creat, Ur 0.35(H) <=0.20 mg/mg creat LAB CHEMISTRY METHOD 04/15/2025 7:14 PM EDT [facility] Creatinine, Urine 79.0 mg/dL LAB CHEMISTRY METHOD 04/15/2025 7:14 PM EDT [facility] Urine Urine specimen obtained by clean catch procedure / Unknown Non-blood Collection / Unknown 04/15/2025 6:21 PM EDT 04/15/2025 6:33 PM EDT us Kailash Wray MD LAB URINE ORDERABLES Final Re sult Performing Organization Address [facility] Co de Phone Number [facility] [address] [place] [address], [place] [phone] * [place] Umbilical Artery Doppler (04/08/2025 4:17 PM EDT) Only the most recent of4 resultswithin the time period is included. Anatomical Region Laterality Modality Body Ultrasound 04/08/2025 3:39 PM EDT Impressions 04/09/2025 9:49 AM EDT Plan / Recommendations Delivery is recommended during the 37th week. Earlier delivery may be indicated pending maternal and clinical course. Twice weekly NSTs are recommended until delivery. Narrative 04/09/2025 9:49 AM EDT OBSTETRICS REPORT (Signed Final 04/09/2025 09:49 am) PATIENT INFO: ID #: [id number] : [birth year] (34 yrs)(F) Name: LI PICHARDO Visit Date: 04/08/2025 03:39 pm PERFORMED BY: Attending: Lisandra Donato MD Performed By: Rosalind Mello [facility] Referred By: Severiano Sousa [facility] Ref. Address: [address] [place] [address] Location: [place] [facility] ([facility]) SERVICE(S) PROVIDED: [place] [id number] Doppler umbilical artery 81445 BPP without NST 05943 INDICATIONS: Supervision of elderly multigravida, third O09.523 trimester Pre-existing essential hypertension O10.013 complicating , third trimester Maternal care for other known or suspected O36.2592 poor growth, third trimester, barreto 36 weeks gestation of Z3A.36 TECHNIQUE/SCAN QUALITY: Technique: Transabdominal Scan Satisfactory Quality: OB HISTORY: : 4 Term: 0 SAB: 1 TOP: 2 Livin VITAL SIGNS: Weight (lb) Height BMI 177 4'10 36.99 EVALUATION: Number Of Fetuses: 1 Heart Rate(bpm): 140 Cardiac Activity: Observed Appears regular Presentation: Cephalic Placenta Location: Posterior Appearance: Grade 3 Relation to CVX: No previa Amniotic Fluid STEVAN FV: Within Normal Limits RUQ(cm) RLQ(cm) LUQ(cm) LLQ(cm) 1.8 2.84 3.11 1.21 STEVAN Sum(cm) %Tile Largest Pocket(cm) 8.96 14 3.11 Comment: A >2 x 2 cm pocket of fluid is noted. BIOPHYSICAL EVALUATION: Amniotic F.V: Within normal limits F. Tone: Observed F. Movement: Observed Score: 04/17 F. Breathing: Observed BIOMETRY: BPD: 81.2 mm G.Age: 32w 4d < 1 % HC: 302.8 mm G.Age: 33w 4d < 1 % AC: 300.9 mm G.Age: 34w 0d 11 % FL: 61.5 mm G.Age: 31w 6d < 1 % LV: 4.1 mm CI: 72.72 % 70 - 86 FL/HC: 20.3 % 20.1 - 22.1 HC/AC: 1.01 0.93 - 1.11 FL/BPD: 75.7 % 71 - 87 FL/AC: 20.4 % 20 - 24 Est. FW: 2158 gm 4 lb 12 oz 3.3 % GESTATIONAL AGE: LMP: 36w 0d Date: 07/30/24 CORY: 05/06/25 U/S Today: 33w 0d CORY: 05/27/25 Best: 36w 0d Det. By: LMP (07/30/24) CORY: 8/27/25 STANDARD ANATOMY: Cranium: Normal appearance Stomach: Normal appearance Kidneys: Normal appearance Bladder: Normal appearance DOPPLER - VESSELS: Umbilical Artery S/D %tile 3 82 COMMENTS: Ms. Pichardo is being seen for growth and Dopplers for chronic hypertension with now superimposed preeclampsia and growth restriction. - Her medical history is significant for marijuana use, seizure disorder, chronic hypertension, obesity, anxiety, and depression. She takes 200 mg BID of labetalol, 81 mg aspirin, and 20 mg of Prozac daily. Her obstetrical history is significant for one miscarriage and two terminations. - She had cell-free DNA screening performed. Results were low risk for all conditions assessed. Ultrasound findings: The estimated weight is 2158 grams, at 3.3rd percentile. The amniotic fluid index is normal. Umbilical artery Doppler studies were performed and are in the normal range for the gestational age. - A biophysical profile was performed, and the result was 8. The biophysical began at 3:27 PM and ended at 3:36 PM. - Dr. Donato conveyed the findings to the patient during the ultrasound. - Counseling The patient and I reviewed that there has been growth deceleration with the AC being at the 3.3rd percentile. I explained to her that, given the increased morbidities associated with this finding and with the diagnosis of superimposed preeclampsia, I recommend delivery during the 37th week. If she were to develop any severe features of preeclampsia, her delivery would be indicated at that time. I gave her preeclampsia precautions. Lisandra Donato MD Electronically Signed Final Report 04/09/2025 09:49 am Procedure Lisandra Pollock MD - 04/09/2025 OBSTETRICS REPORT (Signed Final 04/09/2025 09:49 am) PATIENT INFO: ID #: [id number] : [birth year] (34 yrs)(F) Name: LI PICHARDO Visit Date: 04/08/2025 03:39 pm PERFORMED BY: Attending: Lisandra Donato MD Performed By: Rosalind Mello [facility] Referred By: Severiano Sousa [facility] Ref. Address: [address] [place] [id number] Location: [place] [facility] ([facility]) SERVICE(S) PROVIDED: [place] [address] [id number] Doppler umbilical artery 01379 BPP without NST 06892 INDICATIONS: Supervision of elderly multigravida, third O09.523 trimester Pre-existing essential hypertension O10.013 complicating , third trimester Maternal care for other known or suspected O36.5900 poor growth, third trimester, barreto 36 weeks gestation of Z3A.36 TECHNIQUE/SCAN QUALITY: Technique: Transabdominal Scan Satisfactory Quality: OB HISTORY: : 4 Term: 0 SAB: 1 TOP: 2 Livin VITAL SIGNS: Weight (lb) Height BMI 177 4'10 36.99 EVALUATION: Number Of Fetuses: 1 Heart Rate(bpm): 140 Cardiac Activity: Observed Appears regular Presentation: Cephalic Placenta Location: Posterior Appearance: Grade 3 Relation to CVX: No previa Amniotic Fluid STEVAN FV: Within Normal Limits RUQ(cm) RLQ(cm) LUQ(cm) LLQ(cm) 1.8 2.84 3.11 1.21 STEVAN Sum(cm) %Tile Largest Pocket(cm) 8.96 14 3.11 Comment: A >2 x 2 cm pocket of fluid is noted. BIOPHYSICAL EVALUATION: Amniotic F.V: Within normal limits F. Tone: Observed F. Movement: Observed Score: 8 F. Breathing: Observed BIOMETRY: BPD: 81.2 mm G.Age: 32w 4d < 1 % HC: 302.8 mm G.Age: 33w 4d < 1 % AC: 300.9 mm G.Age: 34w 0d 11 % FL: 61.5 mm G.Age: 31w 6d < 1 % LV: 4.1 mm CI: 72.72 % 70 - 86 FL/HC: 20.3 % 20.1 - 22.1 HC/AC: 1.01 0.93 - 1.11 FL/BPD: 75.7 % 71 - 87 FL/AC: 20.4 % Est. FW: 2158 gm 4 lb 12 oz 3.3 % GESTATIONAL AGE: LMP: 36w 0d Date: 07/30/24 CORY: 05/06/25 U/S Today: 33w 0d CORY: 05/27/25 Best: 36w 0d Det. By: LMP (07/30/24) CORY: 05/06/25 STANDARD ANATOMY: Cranium: Normal appearance Stomach: Normal appearance Kidneys: Normal appearance Bladder: Normal appearance DOPPLER - VESSELS: Umbilical Artery S/D %tile 3 82 COMMENTS: Ms. Pichardo is being seen for growth and Dopplers for chronic hypertension with now superimposed preeclampsia and growth restriction. - Her medical history is significant for marijuana use, seizure disorder, chronic hypertension, obesity, anxiety, and depression. She takes 200 mg BID of labetalol, 81 mg aspirin, and 20 mg of Prozac daily. Her obstetrical history is significant for one miscarriage and two terminations. - She had cell-free DNA screening performed. Results were low risk for all conditions assessed. Ultrasound findings: The estimated weight is 2158 grams, at 3.3rd percentile. The amniotic fluid index is normal. Umbilical artery Doppler studies were performed and are in the normal range for the gestational age. - A biophysical profile was performed, and the result was 04/17. The biophysical began at 3:27 PM and ended at 3:36 PM. - Dr. Donato conveyed the findings to the patient during the ultrasound. - Counseling The patient and I reviewed that there has been growth deceleration with the AC being at the 3.3rd percentile. I explained to her that, given the increased morbidities associated with this finding and with the diagnosis of superimposed preeclampsia, I recommend delivery during the 37th week. If she were to develop any severe features of preeclampsia, her delivery would be indicated at that time. I gave her preeclampsia precautions. Lisandra Donato MD Electronically Signed Final Report 04/09/2025 09:49 am IMPRESSION: Plan / Recommendations Delivery is recommended during the 37th week. Earlier delivery may be indicated pending maternal and clinical course. Twice weekly NSTs are recommended until delivery. us Barla R Sousa CNM IMG OB US PROCEDURES Final Re sult * US Biophysical Profile wo Non Stress Test (04/08/2025 4:17 PM EDT) Only the most recent of4 resultswithin the time period is included. Anatomical Region Laterality Modality Body Ultrasound 04/08/2025 3:39 PM EDT Impressions 04/09/2025 9:49 AM EDT Plan / Recommendations Delivery is recommended during the 37th week. Earlier delivery may be indicated pending maternal and clinical course. Twice weekly NSTs are recommended until delivery. Narrative 04/09/2025 9:49 AM EDT OBSTETRICS REPORT (Signed Final 04/09/2025 09:49 am) PATIENT INFO: ID #: [id number] : [birth year] (34 yrs)(F) Name: LI PICHARDO Visit Date: 04/08/2025 03:39 pm PERFORMED BY: Attending: Lisandra Donato MD Performed By: Rosalind Mello [facility] Referred By: Severiano Sousa [facility] Ref. Address: [address] [place] [address] Location: [place] [facility] ([facility]) SERVICE(S) PROVIDED: [place] up [id number] Doppler umbilical artery 84526 BPP without NST 10818 INDICATIONS: Supervision of elderly multigravida, third O09.523 trimester Pre-existing essential hypertension O10.013 complicating , third trimester Maternal care for other known or suspected O36.5966 poor growth, third trimester, barreto 36 weeks gestation of Z3A.36 TECHNIQUE/SCAN QUALITY: Technique: Transabdominal Scan Satisfactory Quality: OB HISTORY: : 4 Term: 0 SAB: 1 TOP: 2 Livin VITAL SIGNS: Weight (lb) Height BMI 177 4'10 36.99 EVALUATION: Number Of Fetuses: 1 Heart Rate(bpm): 140 Cardiac Activity: Observed Appears regular Presentation: Cephalic Placenta Location: Posterior Appearance: Grade 3 Relation to CVX: No previa Amniotic Fluid STEVAN FV: Within Normal Limits RUQ(cm) RLQ(cm) LUQ(cm) LLQ(cm) 1.8 2.84 3.11 1.21 STEVAN Sum(cm) %Tile Largest Pocket(cm) 8.96 14 3.11 Comment: A >2 x 2 cm pocket of fluid is noted. BIOPHYSICAL EVALUATION: Amniotic F.V: Within normal limits F. Tone: Observed F. Movement: Observed Score: 04/17 F. Breathing: Observed BIOMETRY: BPD: 81.2 mm G.Age: 32w 4d < 1 % HC: 302.8 mm G.Age: 33w 4d < 1 % AC: 300.9 mm G.Age: 34w 0d 11 % FL: 61.5 mm G.Age: 31w 6d < 1 % LV: 4.1 mm CI: 72.72 % 70 - 86 FL/HC: 20.3 % 20.1 - 22.1 HC/AC: 1.01 0.93 - 1.11 FL/BPD: 75.7 % 71 - 87 FL/AC: 20.4 % 20 - 24 Est. FW: 2158 gm 4 lb 12 oz 3.3 % GESTATIONAL AGE: LMP: 36w 0d Date: 07/30/24 CORY: 05/06/25 U/S Today: 33w 0d CORY: 05/27/25 Best: 36w 0d Det. By: LMP (07/30/24) CORY: 05/06/25 STANDARD ANATOMY: Cranium: Normal appearance Stomach: Normal appearance Kidneys: Normal appearance Bladder: Normal appearance DOPPLER - VESSELS: Umbilical Artery S/D %tile 3 82 COMMENTS: Ms. Pichardo is being seen for growth and Dopplers for chronic hypertension with now superimposed preeclampsia and growth restriction. - Her medical history is significant for marijuana use, seizure disorder, chronic hypertension, obesity, anxiety, and depression. She takes 200 mg BID of labetalol, 81 mg aspirin, and 20 mg of Prozac daily. Her obstetrical history is significant for one miscarriage and two terminations. - She had cell-free DNA screening performed. Results were low risk for all conditions assessed. Ultrasound findings: The estimated weight is 2158 grams, at 3.3rd percentile. The amniotic fluid index is normal. Umbilical artery Doppler studies were performed and are in the normal range for the gestational age. - A biophysical profile was performed, and the result was 04/17. The biophysical began at 3:27 PM and ended at 3:36 PM. - Dr. Donato conveyed the findings to the patient during the ultrasound. - Counseling The patient and I reviewed that there has been growth deceleration with the AC being at the 3.3rd percentile. I explained to her that, given the increased morbidities associated with this finding and with the diagnosis of superimposed preeclampsia, I recommend delivery during the 37th week. If she were to develop any severe features of preeclampsia, her delivery would be indicated at that time. I gave her preeclampsia precautions. Lisandra Donato MD Electronically Signed Final Report 04/09/2025 09:49 am Procedure Note Lisandra Donato MD - 04/09/2025 OBSTETRICS REPORT (Signed Final 04/09/2025 09:49 am) PATIENT INFO: ID #: [id number] : [birth year] (34 yrs)(F) Name: LI PICHARDO Visit Date: 04/08/2025 03:39 pm PERFORMED BY: Attending: Lisandra Donato MD Performed By: Rosalind Mello [facility] Referred By: Severiano Sousa [facility] Ref. Address: [address] [place] [address] Location: [place] [facility] ([facility]) SERVICE(S) PROVIDED: [place] [address] Doppler umbilical artery 42267 BPP without NST 77356 INDICATIONS: Supervision of elderly multigravida, third O09.523 trimester Pre-existing essential hypertension O10.013 complicating , third trimester Maternal care for other known or suspected O36.5930 poor growth, third trimester, barreto 36 weeks gestation of Z3A.36 TECHNIQUE/SCAN QUALITY: Technique: Transabdominal Scan Satisfactory Quality: OB HISTORY: : 4 Term: 0 SAB: 1 TOP: 2 Livin VITAL SIGNS: Weight (lb) Height BMI 177 4'10 36.99 EVALUATION: Number Of Fetuses: 1 Heart Rate(bpm): 140 Cardiac Activity: Observed Appears regular Presentation: Cephalic Placenta Location: Posterior Appearance: Grade 3 Relation to CVX: No previa Amniotic Fluid STEVAN FV: Within Normal Limits RUQ(cm) RLQ(cm) LUQ(cm) LLQ(cm) 1.8 2.84 3.11 1.21 STEVAN Sum(cm) %Tile Largest Pocket(cm) 8.96 14 3.11 Comment: A >2 x 2 cm pocket of fluid is noted. BIOPHYSICAL EVALUATION: Amniotic F.V: Within normal limits F. Tone: Observed F. Movement: Observed Score: 88 F. Breathing: Observed BIOMETRY: BPD: 81.2 mm G.Age: 32w 4d < 1 % HC: 302.8 mm G.Age: 33w 4d < 1 % AC: 300.9 mm G.Age: 34w 0d 11 % FL: 61.5 mm G.Age: 31w 6d < 1 % LV: 4.1 mm CI: 72.72 % 70 - 86 FL/HC: 20.3 % 20.1 - 22.1 HC/AC: 1.01 0.93 - 1.11 FL/BPD: 75.7 % 71 - 87 FL/AC: 20.4 % - 24 Est. FW: 2158 gm 4 lb 12 oz 3.3 % GESTATIONAL AGE: LMP: 36w 0d Date: 07/30/24 CORY: 05/06/25 U/S Today: 33w 0d CORY: 05/27/25 Best: 36w 0d Det. By: LMP (07/30/24) CORY: 05/06/25 STANDARD ANATOMY: Cranium: Normal appearance Stomach: Normal appearance Kidneys: Normal appearance Bladder: Normal appearance DOPPLER - VESSELS: Umbilical Artery S/D %tile 3 82 COMMENTS: Ms. Pichardo is being seen for growth and Dopplers for chronic hypertension with now superimposed preeclampsia and growth restriction. - Her medical history is significant for marijuana use, seizure disorder, chronic hypertension, obesity, anxiety, and depression. She takes 200 mg BID of labetalol, 81 mg aspirin, and 20 mg of Prozac daily. Her obstetrical history is significant for one miscarriage and two terminations. - She had cell-free DNA screening performed. Results were low risk for all conditions assessed. Ultrasound findings: The estimated weight is 2158 grams, at 3.3rd percentile. The amniotic fluid index is normal. Umbilical artery Doppler studies were performed and are in the normal range for the gestational age. - A biophysical profile was performed, and the result was 04/17. The biophysical began at 3:27 PM and ended at 3:36 PM. - Dr. Donato conveyed the findings to the patient during the ultrasound. - Counseling The patient and I reviewed that there has been growth deceleration with the AC being at the 3.3rd percentile. I explained to her that, given the increased morbidities associated with this finding and with the diagnosis of superimposed preeclampsia, I recommend delivery during the 37th week. If she were to develop any severe features of preeclampsia, her delivery would be indicated at that time. I gave her preeclampsia precautions. Lisandra Donato MD Electronically Signed Final Report 04/09/2025 09:49 am IMPRESSION: Plan / Recommendations Delivery is recommended during the 37th week. Earlier delivery may be indicated pending maternal and clinical course. Twice weekly NSTs are recommended until delivery. us Severiano Sousa CNM IMG OB US PROCEDURES Final Re sult * US OB Followup per Fetus (04/08/2025 4:17 PM EDT) Only the most recent of2 resultswithin the time period is included. Anatomical Region Laterality Modality Body Ultrasound 04/08/2025 3:39 PM EDT Impressions 04/09/2025 9:49 AM EDT Plan / Recommendations Delivery is recommended during the 37th week. Earlier delivery may be indicated pending maternal and clinical course. Twice weekly NSTs are recommended until delivery. Narrative 04/09/2025 9:49 AM EDT OBSTETRICS REPORT (Signed Final 04/09/2025 09:49 am) PATIENT INFO: ID #: [id number] : [birth year] (34 yrs)(F) Name: LI PICHARDO Visit Date: 04/08/2025 03:39 pm PERFORMED BY: Attending: Lisandra Donato MD Performed By: Rosalind Mello [facility] Referred By: Severiano ARMSTRONG Ref. Address: [address] [place] [address] Location: [place] [facility] ([facility]) SERVICE(S) PROVIDED: [place] [address] Doppler umbilical artery 14942 BPP without NST 23166 INDICATIONS: Supervision of elderly multigravida, third O09.523 trimester Pre-existing essential hypertension O10.013 complicating , third trimester Maternal care for other known or suspected O36.5960 poor growth, third trimester, barreto 36 weeks gestation of Z3A.36 TECHNIQUE/SCAN QUALITY: Technique: Transabdominal Scan Satisfactory Quality: OB HISTORY: : 4 Term: 0 SAB: 1 TOP: 2 Livin VITAL SIGNS: Weight (lb) Height BMI 177 4'10 36.99 EVALUATION: Number Of Fetuses: 1 Heart Rate(bpm): 140 Cardiac Activity: Observed Appears regular Presentation: Cephalic Placenta Location: Posterior Appearance: Grade 3 Relation to CVX: No previa Amniotic Fluid STEVAN FV: Within Normal Limits RUQ(cm) RLQ(cm) LUQ(cm) LLQ(cm) 1.8 2.84 3.11 1.21 STEVAN Sum(cm) %Tile Largest Pocket(cm) 8.96 14 3.11 Comment: A >2 x 2 cm pocket of fluid is noted. BIOPHYSICAL EVALUATION: Amniotic F.V: Within normal limits F. Tone: Observed F. Movement: Observed Score: 04/17 F. Breathing: Observed BIOMETRY: BPD: 81.2 mm G.Age: 32w 4d < 1 % HC: 302.8 mm G.Age: 33w 4d < 1 % AC: 300.9 mm G.Age: 34w 0d 11 % FL: 61.5 mm G.Age: 31w 6d < 1 % LV: 4.1 mm CI: 72.72 % 70 - 86 FL/HC: 20.3 % 20.1 - 22.1 HC/AC: 1.01 0.93 - 1.11 FL/BPD: 75.7 % 71 - 87 FL/AC: 20.4 % 20 - 24 Est. FW: 2158 gm 4 lb 12 oz 3.3 % GESTATIONAL AGE: LMP: 36w 0d Date: 07/30/24 CORY: 05/06/25 U/S Today: 33w 0d CORY: 05/27/25 Best: 36w 0d Det. By: LMP (07/30/24) CORY: 05/06/25 STANDARD ANATOMY: Cranium: Normal appearance Stomach: Normal appearance Kidneys: Normal appearance Bladder: Normal appearance DOPPLER - VESSELS: Umbilical Artery S/D %tile 3 82 COMMENTS: Ms. Pichardo is being seen for growth and Dopplers for chronic hypertension with now superimposed preeclampsia and growth restriction. - Her medical history is significant for marijuana use, seizure disorder, chronic hypertension, obesity, anxiety, and depression. She takes 200 mg BID of labetalol, 81 mg aspirin, and 20 mg of Prozac daily. Her obstetrical history is significant for one miscarriage and two terminations. - She had cell-free DNA screening performed. Results were low risk for all conditions assessed. Ultrasound findings: The estimated weight is 2158 grams, at 3.3rd percentile. The amniotic fluid index is normal. Umbilical artery Doppler studies were performed and are in the normal range for the gestational age. - A biophysical profile was performed, and the result was 04/17. The biophysical began at 3:27 PM and ended at 3:36 PM. - Dr. Donato conveyed the findings to the patient during the ultrasound. - Counseling The patient and I reviewed that there has been growth deceleration with the AC being at the 3.3rd percentile. I explained to her that, given the increased morbidities associated with this finding and with the diagnosis of superimposed preeclampsia, I recommend delivery during the 37th week. If she were to develop any severe features of preeclampsia, her delivery would be indicated at that time. I gave her preeclampsia precautions. Lisandra Donato MD Electronically Signed Final Report 04/09/2025 09:49 am Procedure Note Lisandra oDnato MD - 04/09/2025 OBSTETRICS REPORT (Signed Final 04/09/2025 09:49 am) PATIENT INFO: ID #: [id number] : [birth year] (34 yrs)(F) Name: LI PICHARDO Visit Date: 04/08/2025 03:39 pm PERFORMED BY: Attending: Lisandra Donato MD Performed By: Rosalind Mello [facility] Referred By: Severiano Sousa [facility] Ref. Address: [address] [place] [address] Location: [place] [facility] ([facility]) SERVICE(S) PROVIDED: [place] [address] Doppler umbilical artery 71962 BPP without NST 52810 INDICATIONS: Supervision of elderly multigravida, third O09.523 trimester Pre-existing essential hypertension O10.013 complicating , third trimester Maternal care for other known or suspected O36.5956 poor growth, third trimester, barreto 36 weeks gestation of Z3A.36 TECHNIQUE/SCAN QUALITY: Technique: Transabdominal Scan Satisfactory Quality: OB HISTORY: : 4 Term: 0 SAB: 1 TOP: 2 Livin VITAL SIGNS: Weight (lb) Height BMI 177 4'10 36.99 EVALUATION: Number Of Fetuses: 1 Heart Rate(bpm): 140 Cardiac Activity: Observed Appears regular Presentation: Cephalic Placenta Location: Posterior Appearance: Grade 3 Relation to CVX: No previa Amniotic Fluid STEVAN FV: Within Normal Limits RUQ(cm) RLQ(cm) LUQ(cm) LLQ(cm) 1.8 2.84 3.11 1.21 STEVAN Sum(cm) %Tile Largest Pocket(cm) 8.96 14 3.11 Comment: A >2 x 2 cm pocket of fluid is noted. BIOPHYSICAL EVALUATION: Amniotic F.V: Within normal limits F. Tone: Observed F. Movement: Observed Score: 04/17 F. Breathing: Observed BIOMETRY: BPD: 81.2 mm G.Age: 32w 4d < 1 % HC: 302.8 mm G.Age: 33w 4d < 1 % AC: 300.9 mm G.Age: 34w 0d 11 % FL: 61.5 mm G.Age: 31w 6d < 1 % LV: 4.1 mm CI: 72.72 % 70 - 86 FL/HC: 20.3 % 20.1 - 22.1 HC/AC: 1.01 0.93 - 1.11 FL/BPD: 75.7 % 71 - 87 FL/AC: 20.4 % 20 - 24 Est. FW: 2158 gm 4 lb 12 oz 3.3 % GESTATIONAL AGE: LMP: 36w 0d Date: 07/30/24 CORY: 05/06/25 U/S Today: 33w 0d CORY: 05/27/25 Best: 36w 0d Det. By: LMP (07/30/24) CORY: 05/06/25 STANDARD ANATOMY: Cranium: Normal appearance Stomach: Normal appearance Kidneys: Normal appearance Bladder: Normal appearance DOPPLER - VESSELS: Umbilical Artery S/D %rosa 3 82 COMMENTS: Ms. Pichardo is being seen for growth and Dopplers for chronic hypertension with now superimposed preeclampsia and growth restriction. - Her medical history is significant for marijuana use, seizure disorder, chronic hypertension, obesity, anxiety, and depression. She takes 200 mg BID of labetalol, 81 mg aspirin, and 20 mg of Prozac daily. Her obstetrical history is significant for one miscarriage and two terminations. - She had cell-free DNA screening performed. Results were low risk for all conditions assessed. Ultrasound findings: The estimated weight is 2158 grams, at 3.3rd percentile. The amniotic fluid index is normal. Umbilical artery Doppler studies were performed and are in the normal range for the gestational age. - A biophysical profile was performed, and the result was 8/8. The biophysical began at 3:27 PM and ended at 3:36 PM. - Dr. Donato conveyed the findings to the patient during the ultrasound. - Counseling The patient and I reviewed that there has been growth deceleration with the AC being at the 3.3rd percentile. I explained to her that, given the increased morbidities associated with this finding and with the diagnosis of superimposed preeclampsia, I recommend delivery during the 37th week. If she were to develop any severe features of preeclampsia, her delivery would be indicated at that time. I gave her preeclampsia precautions. Lisandra Donato MD Electronically Signed Final Report 04/09/2025 09:49 am IMPRESSION: Plan / Recommendations Delivery is recommended during the 37th week. Earlier delivery may be indicated pending maternal and clinical course. Twice weekly NSTs are recommended until delivery. us Severiano Sousa CNM IMG OB US PROCEDURES Final Re sult * (ABNORMAL) Urinalysis with reflex microscopic and culture (04/04/2025 4:12 PM EDT) Specific [place] Urine 1.013 1.003 - 1.030 LAB URINALYSIS - AUTOMATED METHOD 04/04/2025 4:31 PM [facility] pH, Urine 6.5 5.0 - 8.0 pH LAB URINALYSIS - AUTOMATED METHOD 04/04/2025 4:31 PM [facility] Leukocytes, Urine Negative Negative LAB URINALYSIS - AUTOMATED METHOD 04/04/2025 4:31 PM [facility] Nitrite, Urine Negative Negative LAB URINALYSIS - AUTOMATED METHOD 04/04/2025 4:31 PM [facility] Protein, Urine 30(A) <=Trace mg/dL LAB URINALYSIS - AUTOMATED METHOD 04/04/2025 4:31 PM [facility] Glucose, Urine Negative Negative mg/dL LAB URINALYSIS - AUTOMATED METHOD 04/04/2025 4:31 PM [facility] Ketones, Urine Negative Negative mg/dL LAB URINALYSIS - AUTOMATED METHOD 04/04/2025 4:31 PM [facility] Urobilinogen, Urine 0.2 0.2 - 1.0 mg/dL LAB URINALYSIS - AUTOMATED METHOD 04/04/2025 4:31 PM [facility] Bilirubin, Urine Negative Negative LAB URINALYSIS - AUTOMATED METHOD 04/04/2025 4:31 PM [facility] Blood, Urine Negative Negative LAB URINALYSIS - AUTOMATED METHOD 04/04/2025 4:31 PM [facility] RBC, Urine 0.3 0 - 4 /HPF LAB URINALYSIS - AUTOMATED METHOD 04/04/2025 4:31 PM [facility] WBC, Urine 0.3 0 - 4 /HPF LAB URINALYSIS - AUTOMATED METHOD 04/04/2025 4:31 PM EDT [facility] Squamous Epithelial, Urine 11 0 - 60 /LPF LAB URINALYSIS - AUTOMATED METHOD 04/04/2025 4:31 PM EDT [facility] Bacteria, Urine Negative Negative /HPF LAB URINALYSIS - AUTOMATED METHOD 04/04/2025 4:31 PM EDT [facility] Hyaline Casts, Urine 0.8 0 - 3 /LPF LAB URINALYSIS - AUTOMATED METHOD 04/04/2025 4:31 PM EDT [facility] Urine Urine specimen from urinary conduit / Unknown Non-blood Collection / Unknown 04/04/2025 4:12 PM EDT 04/04/2025 4:24 PM EDT Gomez Bradford MD LAB URINE ORDERABLES Fi nal Result Performing Organization Address City/[facility]/ZIP Co de Phone Number [facility] [address] [place] [address], [place] [phone] * Regan urine culture tube (04/04/2025 4:12 PM EDT) [facility] Extra Tube Hold for add-ons. 04/04/2025 6:01 PM EDT [facility] Comment:Auto resulted. Urine Urine specimen from urinary conduit / Unknown Non-blood Collection / Unknown 04/04/2025 4:12 PM EDT 04/04/2025 4:24 PM EDT Gomez Bradford MD LAB URINE ORDERABLES Fi nal Result [facility] [address] [place] [address], [place] [phone] * Strep B molecular study (04/04/2025 4:12 PM EDT) [facility] Grp B Strep PCR Not Detected Not Detected LAB MICROBIOLOGY METHOD 04/06/2025 8:25 AM EDT [facility] Swab Pooled specimen from vaginal introitus and rectal swab / Unknown Non-blood Collection / Unknown 04/04/2025 4:12 PM EDT 04/04/2025 4:24 PM EDT Gomez Bradford MD LAB BLOOD ORDERABLES Fi nal Result [facility] [address] [place] [address], [place] [phone] * Catron BB tube (04/04/2025 3:09 PM EDT) Pathologist [facility] Extra Tube Hold for add-ons. 04/04/2025 5:01 PM EDT [facility] Comment:Auto resulted. Blood Venous blood specimen / Unknown 04/04/2025 3:09 PM EDT 04/04/2025 3:16 PM EDT Gomez Bradford MD LAB BLOOD ORDERABLES Fi nal Result Performing Organization Address [facility]/ZIP Co de Phone Number [facility] [address] [place] [address], [place] [phone] * Uric acid (04/04/2025 3:09 PM EDT) Uric Acid 5.4 3.1 - 7.8 mg/dL LAB CHEMISTRY METHOD 04/04/2025 3:41 PM EDT [facility] Blood Venous blood specimen / Unknown Venipuncture / Unknown 04/04/2025 3:09 PM EDT 04/04/2025 3:15 PM EDT Gomez Bradford MD LAB BLOOD ORDERABLES Fi nal Result [facility] [address] [place] [address], [place] [phone] * Creatinine (04/03/2025 11:40 AM EDT) Creatinine 0.68 0.50 - 1.10 mg/dL LAB CHEMISTRY METHOD 04/03/2025 6:49 PM EDT [facility] eGFR 116 >=60 mL/min/1. 73m2 LAB CHEMISTRY METHOD 04/03/2025 6:49 PM EDT [facility] Comment:Calculation based on the Chronic Kidney Disease Epidemiology Collaboration (CKD-EPI) equation refit without adjustment for race. Blood Venous blood specimen / Unknown Venipuncture / Unknown 04/03/2025 11:40 AM EDT 04/03/2025 11:40 AM EDT Li Yi [facility] BLOOD ORDERABLES Final Resu lt Performing Organization Address [facility]/ZIP Co de Phone Number [facility] [address] [place] [address], * BUN (04/03/2025 11:40 AM EDT) BUN 8 5 - 25 mg/dL LAB CHEMISTRY METHOD 04/03/2025 6:49 PM EDT [facility] Blood Venous blood specimen / Unknown Venipuncture / Unknown 04/03/2025 11:40 AM EDT 04/03/2025 11:40 AM EDT Li Yi [facility] BLOOD ORDERABLES Final Resu lt [facility] [address] [place] [address], * Alanine aminotransferase (04/03/2025 11:40 AM EDT) ALT (SGPT) 20 10 - 60 unit/L LAB CHEMISTRY METHOD 04/03/2025 7:01 PM EDT [facility] Blood Venous blood specimen / Unknown Venipuncture / Unknown 04/03/2025 11:40 AM EDT 04/03/2025 11:40 AM EDT iL Yi [facility] BLOOD ORDERABLES Final Resu lt Performing Organization Address [facility]/ZIP Co de Phone Number [facility] [address] [place] [address], [place] [phone] * (ABNORMAL) Aspartate aminotransferase (04/03/2025 11:40 AM EDT) AST (SGOT) 9(L) 10 - 42 unit/L LAB CHEMISTRY METHOD 04/03/2025 6:49 PM EDT [facility] Blood Venous blood specimen / Unknown Venipuncture / Unknown 04/03/2025 11:40 AM EDT 04/03/2025 11:40 AM EDT Li Yi [facility] BLOOD ORDERABLES Final Resu lt Performing Organization Address [facility]/ZIP Co de Phone Number [facility] [address] [place] [address], [place] [phone] * US OB Limited 1+ Fetuses (04/03/2025 11:28 AM EDT) Anatomical Region Laterality Modality Body Ultrasound 04/03/2025 11:1 4 AM EDT Narrative 04/03/2025 11:35 AM EDT OBSTETRICS REPORT (Signed Final 04/03/2025 11:35 am) PATIENT INFO: ID #: [id number] : [birth year] (34 yrs)(F) Name: LI PICHARDO Visit Date: 04/03/2025 11:14 am PERFORMED BY: Attending: Rachelle Fuentes MD Performed By: Rosalind Mello RDMS Referred By: Severiano ARMSTRONG Ref. Address: [address] [place] [address] Location: [place] [facility] SERVICE(S) PROVIDED: BPP without NST 37481 OB Limited 82668 Doppler umbilical artery 38485 INDICATIONS: Advanced maternal age in multigravida, third O09.523 trimester Unspecified pre-existing hypertension O10.919 complicating p Pre-existing essential hypertension O10.013 complicating , third trimester Other abnormal findings on O28.8 screening of mother Maternal care for other known or suspected O36.5930 poor growth, third trimester, barreto Obesity complicating , 3rdtrimester O99.213 Morbid obesity E66.01 35 weeks gestation of Z3A.35 TECHNIQUE/SCAN QUALITY: Technique: Transabdominal Scan Satisfactory Quality: OB HISTORY: : 4 Term: 0 SAB: 1 TOP: 2 Livin VITAL SIGNS: Weight (lb) Height BMI 177 4'10 36.99 EVALUATION: Number Of Fetuses: 1 Heart Rate(bpm): 134 Cardiac Activity: Observed Appears regular Presentation: Vertex Placenta Location: Posterior Appearance: Grade 2 Relation to CVX: No previa Amniotic Fluid STEVAN FV: Within Normal Limits RUQ(cm) RLQ(cm) LUQ(cm) LLQ(cm) 4.67 1.67 1.69 2.36 STEVAN Sum(cm) %Tile Largest Pocket(cm) 10.39 24 4.67 Comment: A >2 x 2 cm pocket of fluid is noted. BIOPHYSICAL EVALUATION: Amniotic F.V: Within normal limits F. Tone: Observed F. Movement: Observed Score: 04/17 F. Breathing: Observed BIOMETRY: GESTATIONAL AGE: LMP: 35w 2d Date: 07/30/24 CORY: 05/06/25 Best: 35w 2d Det. By: LMP (07/30/24) CORY: 05/06/25 DOPPLER - VESSELS: Umbilical Artery S/D %tile 2.5 54 COMMENTS: Ms. Pichardo is being seen for a BPP for a non reactive NST done for chronic hypertension and growth restriction. - Her medical history is significant for marijuana use, seizure disorder, chronic hypertension, obesity, anxiety and depression. She takes 200 mg labetalol, 81 mg aspirin and 20 mg of Prozac daily. Her obstetrical history is significant for one miscarriage and two terminations. - She had cell free DNA screening performed. Results were low-risk for all conditions assessed. Ultrasound findings: biometry was not obtained during todays visit. The amniotic fluid index is normal. Umbilical artery Doppler studies were performed and are in the normal range for the gestational age. - A biophysical profile was performed and was 04/17. The biophysical began at 11:17 AM and ended at 11:21 AM. - Plan: She has been scheduled to return in 1 week for assessment of growth and Dopplers. Weekly NSTs are recommended. Rachelle Fuentes MD Electronically Signed Final Report 04/03/2025 11:35 am Procedure Note Rachelle Fuentes MD - 04/03/2025 OBSTETRICS REPORT (Signed Final 04/03/2025 11:35 am) PATIENT INFO: ID #: [id number] : [birth year] (34 yrs)(F) Name: LI PICHARDO Visit Date: 04/03/2025 11:14 am PERFORMED BY: Attending: Rachelle Fuentes MD Performed By: Rosalind Mello [facility] Referred By: Severiano Sousa [facility] Ref. Address: [address] [place] [address] Location: [place] [facility] ([facility]) SERVICE(S) PROVIDED: BPP without NST 06536 OB Limited 94782 Doppler umbilical artery 96870 INDICATIONS: Advanced maternal age in multigravida, third O09.523 trimester Unspecified pre-existing hypertension O10.919 complicating p Pre-existing essential hypertension O10.013 complicating , third trimester Other abnormal findings on O28.8 screening of mother Maternal care for other known or suspected O36.5962 poor growth, third trimester, barreto Obesity complicating , 3rdtrimester O99.213 Morbid obesity E66.01 35 weeks gestation of Z3A.35 TECHNIQUE/SCAN QUALITY: Technique: Transabdominal Scan Satisfactory Quality: OB HISTORY: : 4 Term: 0 SAB: 1 TOP: 2 Livin VITAL SIGNS: Weight (lb) Height BMI 177 4'10 36.99 EVALUATION: Number Of Fetuses: 1 Heart Rate(bpm): 134 Cardiac Activity: Observed Appears regular Presentation: Vertex Placenta Location: Posterior Appearance: Grade 2 Relation to CVX: No previa Amniotic Fluid STEVAN FV: Within Normal Limits RUQ(cm) RLQ(cm) LUQ(cm) LLQ(cm) 4.67 1.67 1.69 2.36 STEVAN Sum(cm) %Tile Largest Pocket(cm) 10.39 24 4.67 Comment: A >2 x 2 cm pocket of fluid is noted. BIOPHYSICAL EVALUATION: Amniotic F.V: Within normal limits F. Tone: Observed F. Movement: Observed Score: 04/17 F. Breathing: Observed BIOMETRY: GESTATIONAL AGE: LMP: 35w 2d Date: 07/30/24 CORY: 05/06/25 Best: 35w 2d Det. By: LMP (07/30/24) CORY: 05/06/25 DOPPLER - VESSELS: Umbilical Artery S/D %tile 2.5 54 COMMENTS: Ms. Pichardo is being seen for a BPP for a non reactive NST done for chronic hypertension and growth restriction. - Her medical history is significant for marijuana use, seizure disorder, chronic hypertension, obesity, anxiety and depression. She takes 200 mg labetalol, 81 mg aspirin and 20 mg of Prozac daily. Her obstetrical history is significant for one miscarriage and two terminations. - She had cell free DNA screening performed. Results were low-risk for all conditions assessed. Ultrasound findings: biometry was not obtained during todays visit. The amniotic fluid index is normal. Umbilical artery Doppler studies were performed and are in the normal range for the gestational age. - A biophysical profile was performed and was 04/17. The biophysical began at 11:17 AM and ended at 11:21 AM. - Plan: She has been scheduled to return in 1 week for assessment of growth and Dopplers. Weekly NSTs are recommended. Rachelle Fuentes MD Electronically Signed Final Report 04/03/2025 11:35 am us Li Yi CNM IMG OB US PROCEDURES Final Resu lt * GTT gestational 3 hour (03/25/2025 11:51 AM EDT) Glucose, 3 HR Gestational 94 <140 mg/dL LAB CHEMISTRY METHOD 03/25/2025 3:37 PM EDT [facility] Blood Venous blood specimen / Unknown Venipuncture / Unknown 03/25/2025 11:51 AM EDT 03/25/2025 11:52 AM EDT Narrative [facility] - 03/25/2025 3:37 PM EDT Gestational 3 hour GTT Reference Range: Normal: Fasting: < 95 mg/dL 60 minute: < 180 mg/dL 120 minute: < 155 mg/dL 180 minute: < 140 mg/dL us Amy Watkins CNM LAB BLOOD ORDERABLES Final Res ult [facility] [address] [place] [address], [place] [phone] * GTT gestational 2 hour (03/25/2025 10:51 AM EDT) Glucose, 2 HR Gestational 127 <155 mg/dL LAB CHEMISTRY METHOD 03/25/2025 3:36 PM EDT [facility] Blood Venous blood specimen / Unknown Venipuncture / Unknown 03/25/2025 10:51 AM EDT 03/25/2025 10:51 AM EDT us Amy Watkins [facility] BLOOD ORDERABLES Final Res ult Performing Organization Address [facility]/ZIP Co de Phone Number [facility] [address] [place] [address], [place] [phone] * GTT gestational 1 hour (03/25/2025 9:51 AM EDT) Glucose, 1 HR Gestational 143 <180 mg/dL LAB CHEMISTRY METHOD 03/25/2025 3:37 PM EDT [facility] Blood Venous blood specimen / Unknown Venipuncture / Unknown 03/25/2025 9:51 AM EDT 03/25/2025 9:52 AM EDT us Amy Watkins [facility] LAB BLOOD ORDERABLES Final Res ult Performing Organization Address [facility] Co de Phone Number [facility] [address] [place] [address], [place] [phone] * GTT gestational fasting (03/25/2025 8:50 AM EDT) [facility] Glucose, GTT - Fasting 92 <95 mg/dL LAB CHEMISTRY METHOD 03/25/2025 3:36 PM EDT [facility] Blood Venous blood specimen / Unknown Venipuncture / Unknown 03/25/2025 8:50 AM EDT 03/25/2025 8:53 AM EDT us Amy Watkins [facility] BLOOD ORDERABLES Final Res ult Performing Organization Address City/[facility]/ZIP Co de Phone Number [facility] [address] [place] [address], [place] [phone] * HPV with reflex genotype (11/04/2024 2:07 PM EST) HPV Negative Negative LAB MICROBIOLOGY METHOD 11/05/2024 5:02 PM EST [facility] Broom Cervix uteri structure / Unknown 11/04/2024 2:07 PM EST 11/05/2024 5:57 AM EST Severiano Sousa [facility] MOLECULAR DIAGNOSTICS ORD ERABLES Final Result [facility] [address] [place] [address], [place] [phone] * Hepatitis C antibody (10/22/2024 2:16 PM EST) Hepatitis C Antibody Negative Negative LAB CHEMISTRY METHOD 10/22/2024 6:43 PM EST [facility] Blood Venous blood specimen / Unknown Venipuncture / Unknown 10/22/2024 2:16 PM EST 10/22/2024 2:16 PM EST [facility] BLOOD ORDERABLES Final Re sult Performing Organization Address City/[facility]/ZIP Co de Phone Number [facility] [address] [place] [address], [place] [phone] * HIV 1,2 antibody, p24 antigen with reflex to differentiation (10/22/2024 2:16 PM EST) Pathologist [facility] HIV Combo AB/AG Negative Negative LAB CHEMISTRY METHOD 10/22/2024 6:43 PM EST [facility] Blood Venous blood specimen / Unknown Venipuncture / Unknown 10/22/2024 2:16 PM EST 10/22/2024 2:16 PM EST Narrative [facility] - 10/22/2024 6:43 PM EST This assay is a 4th generation assay allowing for earlier detection of HIV infection by detecting the presence of the HIV-1 p24 antigen as well as the traditional antibodies to HIV type 1 (including group O) and type 2. Use of a 4th generation assay is the current CDC recommendation for HIV screening. Severiano Sousa CNM LAB BLOOD ORDERABLES Final Re sult [facility] [address] [place] [address], [place] [phone] * (ABNORMAL) Lipid panel (09/25/2023) LDL/HDL Ratio 3 0 - 4 Triglycerides 183(A) 0 - 150 mg/dL Cholesterol 195 0 - 200 mg/dL HDL 59 >=40 mg/dL LDL Cholesterol 100 0 - 100 mg/dL Blood Venous blood specimen / Unknown Historical Provider LAB BLOOD ORDERABLES Tiera l Result from Last 3 Months or Most Recently Relevant to Health Maintenance Insurance [facility] Advance Directives * Full Code - Confirmed (Latest Code Status on File) Date Activated Date Inactivated Comments 04/15/2025 7:24 PM 04/20/2025 4:36 PM This code sta tus was ascertained in the following way: Code status discussion: discussion with patient To update the patient's code status, place a code status order. Do not modify or discontinue any currently active code status orders. * Full Code - Default Date Activated Date Inactivated Comments 04/04/2025 2:54 PM 04/04/2025 7:51 PM This is orde r is used when code status has not been discussed with the patient, or code status is otherwise unknown/unconfirmed To update the patient's code status, place a code status order. Do not modify or discontinue any currently active code status orders. Care Teams Line Controller Relationship Specialty Start Date End Date Darcy Flynn MD [address] [place] [id number] PCP - General Internal Medicine 10/22/24
== END 2025-06-15 12:52 | disposition home or self-care (01) ==
PROVIDERS: Physician Assistant; Emergency Provider Emergency Medicine
DX: F10.21 Alcohol dependence, in remission (principal); Z02.79 Encounter for issue of other medical certificate
CPT/HCPCS: 36415; 80053; 80307; 81001; 81025; 85025; 99282

== ENCOUNTER 2025-08-04 08:31 | Emergency (ER) | payer OTHER, SELFPAY ==
--- NOTE | ~2025-08-04 | XR_ITS ---
EXAMINATION: XR CHEST 2 VIEWS HISTORY: cough COMPARISON: There are no prior studies available for comparison. FINDINGS: PA and lateral views of the chest are submitted. The lungs are expanded and clear. There is no pleural effusion, pneumothorax, or pulmonary vascular congestion. The heart is normal in size. The bones are intact. XR/XR chest 2V IMPRESSION: Normal examination of the chest. Electronically signed by: Abdi Monae MD 08/04/2025 08:54 AM [facility]
--- NOTE | 2025-08-04 08:32 | ED_ITS ---
HPI - General Adult General Chief complaint: Nausea/Vomiting/Diarrhea Stated complaint: N/V,DIZZY PER EMS Time Seen by Provider: 08/04/25 08:32 Source: patient and EMS Mode of arrival: EMS Limitations: no limitations History of Present Illness ED Provider: Jennifer Reyes PA-C HPI narrative: Patient is a 35 year old assigned female at with a history of hypertension on clonidine, anxiety on prozac + hydroxyzine, presenting to the emergency department today with nausea, vomiting, and feeling generally unwell. Patient states that over the last day she has felt generally unwell with nausea, vomiting, and a cough. Patient states that she has been able to take her medication and keep it down but everything else comes up. Patient denies any other complaints at this time. Related Data Previous Rx's ?Medication ?Instructions ?Recorded cefuroxime axetil 250 mg tablet 500 mg (2 x 250 mg) PO BID 7 days 08/04/25 #28 tabs ondansetron 4 mg disintegrating 4 mg PO Q8H 3 days #9 tabs 08/04/25 tablet Allergies Allergy/AdvReac Type Severity Reaction Status Date / Time Sulfa (Sulfonamide Allergy Flushing Verified 08/04/25 08:43 Antibiotics) Review of Systems 2 Constitutional: Constitutional: Reports as per HPI Eyes: Eyes: Reports as per HPI ENT: Reports as per HPI Cardiovascular: Cardiovascular: Reports as per HPI Respiratory: Respiratory: Reports as per HPI Gastrointestinal: Gastrointestinal: Reports as per HPI Genitourinary: Genitourinary: Reports as per HPI Musculoskeletal: Musculoskeletal: Reports as per HPI Integumentary/Breasts: Skin/Breast: Reports as per HPI Neurologic: Reports as per HPI Psychiatric: Psychiatric: Reports as per HPI Endocrine: Endocrine: Reports as per HPI Hematologic/Lymphatic: Hematologic/Lymphatic: Reports as per HPI Allergic/Immunologic: Allergic/Immunologic: Reports as per HPI PMFSH Past Medical History Attestation statement: The following information was validated with the patient. Source: old records reviewed and nursing notes reviewed Social History Social History Smoked in Last 30 Days: No Use of substances other than those prescribed or required for medical reasons: No Advance Directives: No Advance Directives Information Provided: Yes Do you have a plan to hurt others: No Plan Patient : No Physical Exam ED Vital Signs: Vital Signs - 24 hr 08/04/25 08:41 08/04/25 09:12 Temperature 98.3 F 98.3 F Pulse Rate 109 H 109 H Respiratory Rate 17 17 Blood Pressure 159/89 H 159/89 H Pulse Oximetry 100 100 Oxygen Delivery Method Room Air Room Air BMI result Body Mass Index 31.1 Const General: cooperative, no acute distress, alert and awake Nutritional Appearance: well nourished Orientation/consciousness: patient oriented x3 HENMT Head: Yes normal to inspection and Yes atraumatic Ears: hearing grossly normal bilaterally and external ears normal General nose exam: Normal external nose present, no nasal discharge noted and no epistaxis Face and sinus: Yes normal facial exam, No abrasion and No laceration Mouth: Normal oral and palatal mucosa present, no drooling and no muffled voice Eyes General: appearance normal, both eyes and all related structures Periorbital: periorbital findings normal Eyelids: Yes eyelids normal Conjunctivae: conjunctivae normal Pupils: Equal, round and reactive pupils present EOM: EOMs intact bilaterally Neck Neck: Yes normal visual inspection and Yes full ROM Resp Effort & Inspection: normal respiratory effort and able to speak in complete sentences Neuro General: patient oriented x3, moves all extremities and CN's II-XI intact bilaterally Cranial nerves: Yes Equal, round and reactive pupils present Cognition (Neuro): normal cognition Extrem General: Yes normal to inspection, Yes full ROM and Yes capillary refill normal Psych Appearance: grossly normal Mental Status: mental status grossly normal Affect: normal affect Attitude: cooperative Thought process: Normal thought process present Thought content: Normal thought content present Insight: Good insight present (Psych) Medications Administered Generic Name Dose Route Start Last Admin Trade Name Freq PRN Reason Stop Dose Admin Ceftriaxone Sodium 2 gm/ 50 mls @ 100 mls/hr 08/04/25 10:27 08/04/25 10:43 Sodium Chloride IV 08/04/25 10:56 100 mls/hr ONCE ONE Administration Discontinued Medications Generic Name Dose Route Start Last Admin Trade Name Freq PRN Reason Stop Dose Admin Sodium Chloride 1,000 mls @ 999 mls/hr 08/04/25 08:45 08/04/25 10:43 Ns IV 08/04/25 10:45 Infused .Q1H1M PRABHU Infusion Ondansetron HCl 4 mg 08/04/25 08:37 08/04/25 08:57 Ondansetron Hcl 4 Mg/2 Ml Vial IVPUSH 08/04/25 08:38 4 mg ONCE ONE Administration Medical Decision Making Medical Decision Making [facility] Narrative: Patient is a 35 year old assigned female at with a history of hypertension on clonidine, anxiety on prozac + hydroxyzine, presenting to the emergency department today with nausea, vomiting, and feeling generally unwell. Patient's physical exam was as noted in the physical exam portion of this note. Patient's blood work was unremarkable. Patient's urine showed a possible UTI with 6-10 WBC + 4+ bacteria. Patient's chest x-ray showed no acute process. Patient received IV fluids and Zofran which, upon re-evaluation, she stated it helped her symptoms some. I explained my physical exam findings as well as all test results to the patient. I answered all questions asked by the patient. Patient was given a dose of Ceftriaxone while in the department and prescribed PO antibiotic for probable UTI. I stressed the importance of the patient taking her medication as directed (either prescribed or as the over the counter packaging recommends). I stressed the importance of the patient following up with her primary care provider. I stressed the importance of the patient returning to the emergency department immediately if her symptoms were to worsen or if she were to develop any dizziness, shortness of breath, difficulty breathing, chest pain, blurry vision, loss of vision, nausea, vomiting, abdominal pain, fever, chills, back pain, or any other complaints. Patient verbalized agreement and understanding with this treatment plan and discharge. Differential Diagnosis Differential Diagnoses: The differential diagnosis associated with the presentation includes Nausea Vomiting UTI Gastroenteritis Viral illness Admission/Observation Consideration of admission/observation: Escalation of care including admission/observation considered Patient would have been admitted to the hospital had her work up had any findings where hospital admission was appropriate and her clinical presentation warranted hospital admission. Lab Data [facility] Lab Attestation statement: I reviewed the patient's lab results. My interpretation of these results are in the [facility] Rationale portion of this note. 08/04/25 08:58 08/04/25 08:58 Labs: Lab Results 08/04/25 08/04/25 Range/Units 08:58 09:56 WBC 7.9 (4.8-10.8) X10*3/uL RBC 5.72 H D (4.20-5.50) X10*6/uL Hgb 15.5 D (12.0-16.0) g/dl Hct 47.3 H D (37.0-47.0) % MCV 82.7 (80.0-98.0) fL MCH 27.1 (27.0-33.0) pg MCHC 32.8 (31.0-35.0) g/dl RDW 12.8 (11.0-16.0) % Plt Count 392 D (160-400) X10*3/uL MPV 8.5 L (9.4-12.3) fL Immature Gran % (Auto) 0.3 (0.0-0.4) % Neut % (Auto) 68.6 (45-73) % Lymph % (Auto) 25.3 (20-40) % [place] % (Auto) 4.5 (2-11) % Eos % (Auto) 1.0 (0-4) % Baso % (Auto) 0.3 (0-2) % Lymph # (Auto) 2.0 (1.2-4.9) X10*3/uL [place] # (Auto) 0.4 (0.1-1.2) X10*3/uL Eos # (Auto) 0.1 (0.0-0.4) X10*3/uL Baso # (Auto) 0.0 (0.0-0.2) X10*3/uL Abs Immat Gran (auto) 0.02 (0.00-0.03) X10*3/uL Absolute Neuts (auto) 5.4 (2.0-8.3) x10*3/uL Absolute Nucleated RBC 0.000 (0.0-0.012) X10*3/uL Nucleated RBC % (auto) 0.0 (0.0-0.2) /100WBC Sodium 138 (135-145) mmol/L Potassium 3.7 (3.3-5.1) mmol/L Chloride 105 (96-108) mmol/L Carbon Dioxide 24 (22-29) mmol/L Anion Gap 13 (12-20) BUN 11 (9-16) mg/dL Creatinine 0.80 (0.5-1.4) mg/dL Estim Creat Clear Calc 81.9 Estimated GFR > 60 Random Glucose 97 (60-115) mg/dL Calcium 10.0 (8.4-10.2) mg/dL Magnesium 1.9 (1.6-2.6) mg/dL Total Bilirubin 0.4 (0.0-1.0) mg/dL AST 24 (5-31) U/L ALT 27 (0-31) U/L Alkaline Phosphatase 73 (39-117) U/L Total Protein 8.5 H (6.5-8.0) g/dL Albumin 5.2 H (3.5-5.0) g/dL Urine Color Yellow Urine Appearance Cloudy Urine pH 8.0 (5.0-9.0) Ur Specific [place] 1.020 (1.005-1.025) Urine Protein Trace (Neg-Trace) mg/dL Urine Glucose (UA) Negative (Negative) mg/dL Urine Ketones Trace (Negative) mg/dL Urine Blood Small (1+) H (Negative) Urine Nitrite Negative (Negative) Ur Leukocyte Esterase Trace H (Negative) Urine RBC 3-5 H (0-2) /HPF Urine WBC 6-10 (0-5) /HPF Ur Squamous Epith Cells 6-10 (0-2) /HPF Urine Bacteria 4+ (None Seen) Hyaline Casts 3-5 (0-2) /LPF Influenza Type A (PCR) NEGATIVE (Negative) Influenza Type B (PCR) NEGATIVE (Negative) RSV RNA Qual (PCR) NEGATIVE (Negative) SARS-CoV-2 RNA (RT-PCR) NEGATIVE (Negative) Independent Interpretation I performed an independent interpretation of an: Plain X-Ray Interpretation: My interpretation is in agreement with the radiologist's impression of this imaging study as written below. EXAMINATION: XR CHEST 2 VIEWS HISTORY: cough COMPARISON: There are no prior studies available for comparison. FINDINGS: PA and lateral views of the chest are submitted. The lungs are expanded and clear. There is no pleural effusion, pneumothorax, or pulmonary vascular congestion. The heart is normal in size. The bones are intact. XR/XR chest 2V IMPRESSION: Normal examination of the chest. Electronically signed by: Abdi Monae MD 08/04/2025 08:54 AM EST Dictated By: Abdi Monae MD Signed By: Electronically signed by Abdi Monae MD 08/04/25 0832 Radiology Impression Discussion of test interpretation with radiology: I have reviewed the radiologist's reading. Tests considered The following testing was considered but not selected: I considered obtaining a CT scan of the patient's abdomen/pelvis however, the patient's current work up and clinical presentation did not warrant this at this time. Prescription Management I considered prescription management with: Antibiotic (patient prescribed an antibiotic for possible UTI) Critical Care Time Critical Care Time Critical Care Time: Yes Total Critical Care Time: 31 Attestation: I spent 31 minutes of Critical Care Time with this patient. This does not include time spent on separately reported billable procedures. Discharge Plan Discharge Clinical Impression: Nausea & vomiting Qualifiers: Vomiting type: unspecified Qualified Code(s): R11.2 - Nausea with vomiting, unspecified Urinary tract infection Qualifiers: Urinary tract infection type: site unspecified Hematuria presence: without hematuria Qualified Code(s): N39.0 - Urinary tract infection, site not specified Patient Disposition: Home, Self-Care Instructions: Urinary Tract Infection in Women (DC), Acute Nausea and Vomiting (DC) Additional Instructions: Your blood work today (kidney function, electrolytes, liver function, blood counts, etc.) were reassuring there is no EMERGENT cause for your symptoms. However, your urine did show evidence of infection for which you have been prescribed an antibiotic. IF you are prescribed home medications and/or you are taking over the counter medications at home - it is very important you continue to do so as prescribed / directed unless told otherwise by a healthcare provider. Follow up with your primary care provider. Do your best to stay well hydrated and rest. Return to the emergency department immediately if your symptoms worsen or if you develop any numbness, tingling, dizziness, shortness of breath, difficulty breathing, chest pain, blurry vision, loss of vision, nausea, vomiting, abdominal pain, fever, chills, back pain, or any other complaints. L Please see the information below about our Patient Portal. If you are not yet enrolled in the [facility] Patient Portal, you will receive an enrollment email invitation following your visit to any [facility] setting. You may also self-enroll in the Patient Portal by visiting our website: [email or web address] The following information is required to access the Patient Portal: - Your [facility] Medical Record Number - Your personal home email address (must match what is in your electronic medical record, Registration staff can assist with this) - Name - Date of Capabilities of the Patient Portal: - Message some providers - View upcoming appointments - Access your health summary, medical history, and visit history - View current conditions and allergies - View procedure and lab results - View your medications, including guidelines, side effects, and precautions - Complete pre-appointment questionnaires requested by your provider - Ready summary reports of your office visits and procedures To access the Patient Portal Mobile [employer], follow these directions: - Search [employer] in the [employer] Store or [employer] [place] Store - Download the [employer] - Search for [facility] - Enter your login/password Prescriptions: New cefuroxime axetil 250 mg tablet 500 mg PO BID 7 Days Qty: 28 0RF ondansetron 4 mg tablet,disintegrating 4 mg PO Q8H 3 Days Qty: 9 0RF Referrals: Group,[facility] [Primary Care Provider, Primary Care] Stand Alone Forms: Work/School Release Print Language: Citizen Of [place]
[2025-08-04 08:41] VITALS: BP 123/98; BP 159/89; PULSE 109; PULSE 119; RESP 17; TEMP 36.8; O2SAT 100; O2SAT 97; BMI 31.1
[2025-08-04 09:05] LABS: MANUAL DIFF FLAG NO
[2025-08-04 09:07] LABS: Hematocrit 47.3 % (37.0-47.0); Hemoglobin 15.5 g/dl (12.0-16.0); Imm Gran Abs Auto 0.02 X10*3/uL (0.00-0.03); Imm Gran Pct Auto 0.3 % (0.0-0.4); Lymphocytes Absolute Auto 2.0 X10*3/uL (1.2-4.9); Mean Corpuscular HGB Conc 32.8 g/dl (31.0-35.0); Mean Corpuscular Hemoglobin 27.1 pg (27.0-33.0); Mean Corpuscular Volume 82.7 fL (80.0-98.0); NRBC Abs Auto 0.000 X10*3/uL (0.0-0.012); NRBC Pct Auto 0.0 /100WBC (0.0-0.2); Platelet Count 392 X10*3/uL (160-400); Red Blood Count 5.72 X10*6/uL (4.20-5.50); White Blood Count 7.9 X10*3/uL (4.8-10.8)
[2025-08-04 09:12] VITALS: BP 159/89; PULSE 109; RESP 17; TEMP 36.8; O2SAT 100
[2025-08-04 09:36] LABS: Alanine Aminotransferase 27 U/L (0-31); Albumin Level 5.2 g/dL (3.5-5.0); Alkaline Phosphatase 73 U/L (39-117); Anion Gap 13 (12-20); Aspartate Amino Transferase 24 U/L (5-31); Blood Urea Nitrogen 11 mg/dL (9-16); Calcium 10.0 mg/dL (8.4-10.2); Carbon Dioxide 24 mmol/L (22-29); Chloride 105 mmol/L (96-108); Creatinine Clr Calc Pharmacy 81.9; Estimated Glomerular Filt Rate > 60; Magnesium 1.9 mg/dL (1.6-2.6); Potassium 3.7 mmol/L (3.3-5.1); Sodium 138 mmol/L (135-145); Total Protein 8.5 g/dL (6.5-8.0)
[2025-08-04 09:43] LABS: Resp Syncy Virus RNA Qual PCR NEGATIVE (Negative); SARS COV2 PCR INHOUSE NEGATIVE (Negative)
[2025-08-04 10:04] LABS: Appearance Urine Cloudy; Glucose Urine UA Negative (Negative); PH 8.0 (5.0-9.0); Specific Gravity - Urine 1.020 (1.005-1.025); UMIC TRIGGER UACC YES
[2025-08-04 10:17] LABS: UACC Culture Trigger YES
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
[2025-08-04 11:06] VITALS: BP 159/89; PULSE 109; RESP 17; TEMP 36.8; O2SAT 100
== END 2025-08-04 11:06 | disposition home or self-care (01) ==
PROVIDERS: Physician Assistant Medical; Emergency Provider Emergency Medicine
DX: R11.2 Nausea with vomiting, unspecified (principal); N39.0 Urinary tract infection, site not specified; R05.9 Cough, unspecified; I10 Essential (primary) hypertension; Z03.818 Encounter for observation for suspected exposure to other biological agents ruled out
CPT/HCPCS: 71046; 80053; 81001; 81003; 83735; 85025; 87086; 87637; 96361; 96365; 96375; 99284; J0696; J2405

== ENCOUNTER → 2025-08-04 08:40 | Outpatient (BNV) | payer OTHER, SELFPAY | PROVIDERS: Visit Provider Radiology Diagnostic Radiology | DX: R05.9 Cough, unspecified (principal) | CPT/HCPCS: 71046 ==